=== PATIENT | female | born 1985 | race Caucasian/White ===

== ENCOUNTER → 2016-12-20 | Outpatient (CLI) | payer BC, OTHER ==
[2016-12-20 12:04] LABS: Basophils # (A) 0.1 k/uL (0-0.2); Basophils % (A) 1 %; CH 28.2; CHCM 33.1; Eosinophils # (A) 0.2 k/uL (0-0.7); Eosinophils % (A) 2 %; HCT 38.5 % (34.0-46.0); HGB 12.7 gm/dL (11.4-16.0); Luc # (Auto) 0.13; Luc % (Auto) 2; Lymphocytes # (A) 2.2 k/uL (1.0-4.8); Lymphocytes % (A) 28 %; MCH 28.2 pg (25.0-35.0); MCV 85.4 fL (80.0-100.0); Mean Platelet Volume 7.4; Monocytes # (A) 0.4 k/uL (0-1.0); Monocytes % (A) 5 %; Neutrophils % (A) 63 %; RBC 4.51 m/uL (3.80-5.40); RDW 14.1 % (11.5-15.5); WBC (Perox) 8.61
[2016-12-20 13:04] LABS: Anion Gap 13 mmol/L; Blood Urea Nitrogen 13 mg/dL (7-17); Calcium 9.4 mg/dL (8.4-10.2); Carbon Dioxide 24 mmol/L (22-30); Chloride 105 mmol/L (98-107); Glucose 94 mg/dL (74-99); Non-African American GFR(MDRD) >60 (>60 ml/min/1.73 sqM); Potassium 4.7 mmol/L (3.5-5.1); Sodium 142 mmol/L (137-145)
== END | disposition home or self-care (01) ==
LOC: LABPAT 11:15
PROVIDERS: ATTEND Obstetrics & Gynecology
DX: Z01.812 Encounter for preprocedural laboratory examination (principal)
CPT/HCPCS: 80048; 85025; 86850; 86900; 86901

== ENCOUNTER 2016-12-23 05:51 | Inpatient (IN) | payer BC, OTHER ==
[2016-12-21 11:22] VITALS: BMI 49.9
--- NOTE | 2016-12-22 19:39 | P.HPOB ---
History of Present Illness H&P Date: 12/22/16 Chief Complaint: Metromenorrhagia This is a 31-year-old female 2 para 2 who presents for total abdominal hysterectomy with bilateral salpingectomy secondary to minimal menorrhagia with irregular cycle. She has undergone an endometrial ablation that stopped her bleeding for a very short time but she continues to bleed almost daily. She has used Provera several times to stop her bleeding but would like definitive surgical treatment to control her bleeding problems. At times she bleeds through a super tampon and pad every 45 minutes. She has been bleeding for over a month now. Obstetrical history: . History of 2 deliveries. Gynecologic history: No history of sexual transmitted diseases. She has had a tubal ligation. She did have an abnormal Pap smear with atypical sinus cells of undetermined significance in 2007 and did undergo a cryo-cautery. Menses are as described above. Social history: She is . 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 Review of Systems Constitutional: Reports fatigue Genitourinary: Reports dysmenorrhea, Reports menorrhagia Menstruation: Reports menses 8 or > days, Reports period heavy Past Medical History Past Medical History: Asthma, GERD/Reflux, Hypertension, Sleep Apnea/CPAP/BIPAP Additional Past Medical History / Comment(s): hx. prolactinoma(causes production of breast milk), hx. of high BP in past, not currently taking anything, hx migraines, sleep apnea, glaucoma History of Any Multi-Drug Resistant Organisms: None Reported Past Surgical History: Appendectomy, Section, Ear Surgery, Orthopedic Surgery, Tonsillectomy, Tubal Ligation, Uterine Ablation Additional Past Surgical History / Comment(s): left wrist surgery, several facial reconstructive surg. from dog bite as child, multiple tubes in ears, laser eye surgery Past Anesthesia/Blood Transfusion Reactions: Previous Problems w/ Anesthesia, Family History of Problems w/ Anesthesia, Motion Sickness, Postoperative Nausea & Vomiting (PONV) Additional Past Anesthesia/Blood Transfusion Reaction / Comment(s): very slow to wake up from anesthesia,both parents hard to wake up Past Psychological History: Anxiety, Depression, Panic Disorder Additional Psychological History / Comment(s): panic attacks Smoking Status: Never smoker Past Alcohol Use History: Rare Past Drug Use History: None Reported - Past Family History Mother Family Medical History: Hypertension, Thyroid Disorder Medications and Allergies Home Medications Medication Instructions Recorded Confirmed Type Albuterol Sulfate [Proair Hfa] 1 - 2 puff INHALATION Q6HR PRN 04/12/16 12/21/16 History Medroxyprogesterone Acetate 10 mg PO HS 10/12/16 12/21/16 History [Provera] FLUoxetine HCL [PROzac] 40 mg PO DAILY 10/14/16 12/21/16 History Allergies Allergy/AdvReac Type Severity Reaction Status Date / Time Sulfa (Sulfonamide Allergy Anaphylaxis Verified 12/21/16 11:11 Antibiotics) amoxicillin AdvReac Rash/Hives Verified 12/21/16 11:11 clarithromycin [From Biaxin] AdvReac Rash/Hives Verified 12/21/16 11:11 cortisone AdvReac Swelling Verified 12/21/16 11:11 levofloxacin [From Levaquin] AdvReac Rash/Hives Verified 12/21/16 11:11 milk AdvReac Diarrhea Verified 12/21/16 11:11 terfenadine [From Seldane] AdvReac Diarrhea Verified 12/21/16 11:11 Exam Osteopathic Statement: *. No significant issues noted on an osteopathic structural exam other than those noted in the History and Physical/Consult. HEENT: Within normal limits Heart: Regular rate and rhythm Lungs: Clear to auscultation bilaterally Abdomen: Soft, nontender Pelvic exam: Uterus is slightly enlarged, anteverted, nontender, with no adnexal masses or tenderness palpated Extremities: Negative Homans Assessment and Plan (1) Menorrhagia with irregular cycle Status: Acute (2) Status post endometrial ablation Status: Acute Plan: Proceed with total abdominal hysterectomy with bilateral salpingectomy. I have discussed the risks, benefits, and alternative therapies for the above- mentioned procedure and for both sedation/anesthesia as well as necessary blood products administration, if indicated, as they pertain to this patient. The patient has indicated her understanding and acceptance of the risks and procedures discussed.
[~2016-12-23 05:51] MED LIST: CLINDAMYCIN 900 MG in DEXTROSE 5% IN WATER 50 ML IVPB ONE; HYDROmorphone 1 MG/ML 1 ML SYRINGE IVP PRN; LACTATED RINGERS 1,000 ML IV SCH; MIDAZOLAM 2 MG/2 ML VIAL IV PRN; ONDANSETRON 4 MG/2 ML VIAL IVP ONE; SCOPOLAMINE 1.5MG/72HR PATCH TRANSDERM ONE
[2016-12-23] MEDS ORDERED: LIDOCAINE 1% 20 ML VIAL (10MG/ML) FOR IV START INTRADERMA ONE (06:36)
[2016-12-23] MEDS ORDERED: DEXAMETHASONE SOD PHOS (MDV) 100 MG/10 ML VIAL IVP ONE (06:40)
[2016-12-23] MEDS ORDERED: LACTATED RINGERS 1,000 ML IV ONE (07:50)
--- NOTE | 2016-12-23 09:05 | P.OP ---
Date of Procedure: 12/23/16 Preoperative Diagnosis: Metromenorrhagia Postoperative Diagnosis: Same Procedure(s) Performed: Total abdominal hysterectomy with bilateral salpingectomy Anesthesia: ROSE Surgeon: Carisa Milner Mentally Retarded Teacher #1: Marivel Carballo Estimated Blood Loss (ml): 150 Pathology: other (Uterus with cervix, bilateral fallopian tubes) Condition: stable Disposition: floor Indications for Procedure: This is a 31-year-old female 2 para 2 who presents for total abdominal hysterectomy with bilateral salpingectomy secondary to minimal menorrhagia with irregular cycle. She has undergone an endometrial ablation that stopped her bleeding for a very short time but she continues to bleed almost daily. She has used Provera several times to stop her bleeding but would like definitive surgical treatment to control her bleeding problems. At times she bleeds through a super tampon and pad every 45 minutes. She has been bleeding for over a month now. Operative Findings: Uterus is small with normal contour. Left ovary did have a small simple cyst that was drained with clear straw fluid. Both tubes showed evidence of previous tubal ligation. Description of Procedure: The patient is taken to the operating room where she is placed in the dorsal supine position. She is prepped and draped in the normal sterile fashion including Puentes catheter insertion and vaginal prep. A Pfannenstiel skin incision is made through the previous laparotomy scar with a scalpel. A second knife was used to carry the incision down to the underlying layer of fascia. The fascia was nicked in the midline with a scalpel and then extended laterally bilaterally with Meléndez scissors. The superior aspect of the fascial incision was grasped with Melani clamps, elevated off the underlying rectus muscle in the midline and then cut with Meléndez scissors. The inferior aspect of the fascial incision was grasped with Melani clamps, elevated off the underlying rectus muscle in the midline and then cut with Meléndez scissors. Next the peritoneum was identified and entered sharply with Meléndez scissors. It is extended superiorly and in fairly with Metzenbaum scissors with good visualization of underlying structures. Next the Joe retractor is placed in the bladder blade was inserted. The bowels were packed with a 3 yard laparotomy sponge. Next the uterus is brought up incision and the corneal regions are grasped with Mildred clamps on both sides. Next the fallopian tube on the left side is brought up to the incision and the mesosalpinx is clamped with a Vianey clamp. This is cut with Meléndez scissors and then sutured with 0 Vicryl suture in Vianey transfixion stitch. The remaining mesosalpinx is also clamped with a Vianey clamp, cut with Meléndez scissors, and sutured with 0 Vicryl suture in Vianey transfixion stitches. Next the uterine ovarian ligament is clamped with a Vianey clamp, cut with Meléndez scissors, and then sutured with 0 Vicryl suture in Vianey transfixion stitch. The same procedure is carried out on the right side. The uterine arteries are then clamped with Vianey clamp on either side. The vesicouterine peritoneum was sharply dissected away from the bladder with Metzenbaum scissors and pushed inferiorly. The bladder was noted be fairly adherent to the uterus. The uterine arteries are then cut with Meléndez scissors, and sutured with 0 Vicryl suture in Vianey transfixion stitches. Next the cardinal ligaments were clamped on either side with Vianey clamp, cut with Meléndez scissors, and sutured with 0 Vicryl suture in Vianey transfixion stitches. The uterosacral ligaments are clamped on either side with Vianey clamps, cut with Meléndez scissors, and sutured with 0 Vicryl suture in Vianey transfixion stitches on either side. The edges of the vaginal cuff were clamped on either side with a Vianey clamp, cut with Meléndez scissors, and sutured with 0 Vicryl suture in Vianey transfixion stitches and held on either side. The vaginal mucosa was then cut just below the level of the cervix and the specimen is removed from the field. The edges of the vaginal cuff were held with Melani clamps. Next the previously held corners of each side of the vaginal cuff were then whipstitched along the connective tissue on either side and brought through the corner of the cuff and tied. Next the vaginal cuff was sutured with 0 Vicryl suture in a running locked fashion. Hemostasis was noted. Copious irrigation is carried out with warm saline. Excellent hemostasis is noted. All sponges are removed from the abdomen. There is a omental adhesion noted at the superior aspect of the fascial incision. The peritoneum is then closed with 0 Vicryl suture in a running fashion. The muscle was then reapproximated with 0 Vicryl suture in interrupted fashion. The fascia layer is then closed with 0 PDS suture in a running fashion with the knots buried on either side and in the midline. Next the subcutaneous tissues closed with 2-0 Vicryl suture in a running fashion. The skin is closed with herman. All sponge and needle counts are correct and the patient is taken to recovery room in stable condition.
[2016-12-23] MEDS ORDERED: diphenhydrAMINE 50 MG/ML 1 ML VIAL IVP PRN (10:20)
[2016-12-23] MEDS ORDERED: ONDANSETRON 4 MG/2 ML VIAL IVP PRN (10:20)
[2016-12-23] MEDS ORDERED: SIMETHICONE 80 MG CHEWABLE PO PRN (10:20)
[2016-12-23] MEDS ORDERED: METOCLOPRAMIDE 5 MG/ML 2 ML VIAL IVP PRN (10:20)
[2016-12-23] MEDS ORDERED: ZOLPIDEM 5 MG TAB PO PRN (10:20)
[2016-12-23] MEDS ORDERED: NALOXONE 0.4 MG/ML 1 ML VIAL IV PRN (10:20)
[2016-12-23] MEDS ORDERED: ALBUTEROL NEBULIZED 2.5 MG/3 ML INHALATION PRN (10:20)
[2016-12-23] MEDS: HYDROmorphone PCA 5 MG/25 ML SYRINGE IV PRN ×3 (11:10→22:31)
[2016-12-23] MEDS: LACTATED RINGERS 1,000 ML IV SCH ×2 (11:59→21:07)
[2016-12-23 12:11] LABS: Amorphous Sediment,Urine Moderate /hpf; Appearance,Urine Turbid (Clear); Bacteria,Urine Rare /hpf; Bilirubin,Urine Negative (Negative); Glucose,Urine (UA) Trace (Negative); Ketones,Urine Negative (Negative); Leukocyte Esterase,Urine Negative (Negative); Mucus,Urine Many /hpf; Nitrite,Urine Negative (Negative); PH, Urine 5.5 (5.0-8.0); Particle Count 55975; Protein,Urine 1+ (Negative); RBC,Urine 47 /hpf (0-5); Specific Gravity,Urine 1.024 (1.001-1.035); Squamous Epithelial Cell,Urine 2 /hpf (0-4); UA Billing (MACRO vs. MICRO) MICRO; Urobilinogen,Urine <2.0 mg/dL (<2.0); WBC,Urine 1 /hpf (0-5)
[2016-12-23] MEDS: KETOROLAC 30 MG/ML 1 ML VIAL IVP PRN ×2 (14:25→21:09)
[2016-12-23] MEDS: SENNOSIDES-DOCUSATE SODIUM 1 EACH TAB PO SCH (21:08)
[2016-12-24] MEDS: LACTATED RINGERS 1,000 ML IV SCH (04:49)
[2016-12-24] MEDS: HYDROmorphone PCA 5 MG/25 ML SYRINGE IV PRN (07:16)
[2016-12-24 07:24] LABS: Basophils % (A) 0 %; CH 27.9; CHCM 32.4; Eosinophils % (A) 0 %; HCT 32.3 % (34.0-46.0); HDW 2.82; HGB 10.5 gm/dL (11.4-16.0); Luc # (Auto) 0.24; Luc % (Auto) 2; Lymphocytes # (A) 2.7 k/uL (1.0-4.8); Lymphocytes % (A) 27 %; MCHC 32.4 g/dL (31.0-37.0); MCV 86.5 fL (80.0-100.0); Mean Platelet Volume 6.9; Monocytes # (A) 0.6 k/uL (0-1.0); Monocytes % (A) 6 %; Neutrophils # (A) 6.3 k/uL (1.3-7.7); Neutrophils % (A) 64 %; RBC 3.74 m/uL (3.80-5.40); RDW 14.3 % (11.5-15.5); WBC 9.8 k/uL (3.8-10.6); WBC (Perox) 10.32
[2016-12-24] MEDS: SENNOSIDES-DOCUSATE SODIUM 1 EACH TAB PO SCH ×3 (08:05→20:46)
[2016-12-24] MEDS: FLUoxetine HCL 20 MG CAP PO SCH (08:07)
[2016-12-24] MEDS: KETOROLAC 30 MG/ML 1 ML VIAL IVP PRN (08:07)
[2016-12-24] MEDS ORDERED: ACETAMINOPHEN TAB 325 MG TAB PO PRN (09:13)
--- NOTE | 2016-12-24 10:03 | P.PN ---
Subjective Principal diagnosis: Status post JANKI with bilateral salpingectomy postoperative day #1 Patient has been ambulating. She has passing flatus and some loose stools. She has been urinating without difficulty. She is still having some pain with the INJECTION MOLDING TECHNICIAN pump. She did have some nausea and vomiting last night but it has improved this morning. She is tolerating liquids at this time. Objective - Vital Signs Vital signs: Vital Signs Temp 98.4 F 12/24/16 07:00 Pulse 93 12/24/16 07:00 Resp 18 12/24/16 07:00 BP 125/61 12/24/16 07:00 Pulse Ox 95 12/24/16 09:23 Intake & Output 12/23/16 12/24/16 12/24/16 18:59 06:59 18:59 Intake Total 1306 400 Output Total 540 250 Balance 766 -250 400 Weight 127.913 kg Intake: IV 1006 Oral 300 400 Output: Urine 390 250 Uretheral (Puentes) 100 Estimated Blood Loss 150 Other: Voiding Method Toilet # Voids 1 1 # Bowel Movements 1 - Constitutional General appearance: Present: no acute distress - Gastrointestinal Gastrointestinal Comment(s): Incision is clean dry and intact with herman in place. General gastrointestinal: Present: normal bowel sounds, soft, tenderness (Mild) - Labs CBC & Chem 7: 12/24/16 06:50 12/20/16 11:20 Labs: Abnormal Lab Results - Last 24 Hours (Table) 12/23/16 12/24/16 Range/Units 11:35 06:50 RBC 3.74 L (3.80-5.40) m/uL Hgb 10.5 L (11.4-16.0) gm/dL Hct 32.3 L (34.0-46.0) % Urine Appearance Turbid H (Clear) Urine Protein 1+ H (Negative) Urine Glucose (UA) Trace H (Negative) Urine Blood Moderate H (Negative) Urine RBC 47 H (0-5) /hpf Amorphous Sediment Moderate H (None) /hpf Urine Bacteria Rare H (None) /hpf Urine Mucus Many H (None) /hpf Microbiology - Last 24 Hours (Table) 12/23/16 11:35 Urine Culture - Preliminary Urine,Catheterized Assessment and Plan (1) Menorrhagia with irregular cycle Status: Acute (2) Status post endometrial ablation Status: Acute Plan: Impression is status post JANKI with bilateral salpingectomy postoperative day # 1. Plan is to switch to oral pain medications today. We'll advance diet as tolerated. Encouraged ambulation. If she is doing well with pain tomorrow and she is tolerating her diet okay, she may be old to go home tomorrow. She will see me in the office in approximately 1 week for a postoperative check and herman will be removed prior to discharge. She will be seen by Dr. Parada on 12/25/2016.
[2016-12-24] MEDS: Acetaminophen-Codeine 300-30mg TAB PO PRN ×3 (12:51→19:55)
[2016-12-24] MEDS: IBUPROFEN 600 MG TAB PO PRN (15:35)
[2016-12-25] MEDS: IBUPROFEN 600 MG TAB PO PRN ×2 (01:11→08:41)
[2016-12-25 01:15] VITALS: RESP 18
[2016-12-25] MEDS: Acetaminophen-Codeine 300-30mg TAB PO PRN ×2 (04:06→11:13)
[2016-12-25] MEDS: LACTATED RINGERS 1,000 ML IV SCH ×2 (07:17→07:18)
[2016-12-25] MEDS: SENNOSIDES-DOCUSATE SODIUM 1 EACH TAB PO SCH (08:42)
[2016-12-25] MEDS: FLUoxetine HCL 20 MG CAP PO SCH (08:42)
[2016-12-25 10:07] VITALS: BP 127/76; PULSE 91; TEMP 97.2
--- NOTE | 2016-12-25 11:36 | P.DS ---
Providers Date of admission: 12/23/16 05:51 Expected date of discharge: 12/25/16 Attending physician: Carisa Milner Primary care physician: [facility] Course: Priscilla is seen and evaluated postop day 2. She is able to ambulate, void and she is tolerating her diet. She voices no complaints. She is requesting discharge home. Her vital signs are stable and she is afebrile. Her heart is regular her lungs are clear her abdomen is soft. Positive bowel sounds are noted. Her incision is clean dry and intact but based on reviewing the incision did not feel herman should be removed at this time. She'll follow up in the office in 1-2 days for staple removal and reevaluation. All the questions are answered for her prior to discharge and she is again stable for discharge at this time. Patient Condition at Discharge: Good Plan - Discharge Summary New Discharge Prescriptions: Acetaminophen-Codeine 300-30mg [Tylenol w/codeine #3] 1 each PO Q4HR PRN #30 tab PRN Reason: Moderate Pain Ibuprofen [Motrin] 600 mg PO Q6HR PRN #60 tab PRN Reason: Pain Discharge Medication List Albuterol Sulfate [Proair Hfa] 1 - 2 puff INHALATION RT-Q6H PRN 04/12/16 [ History] FLUoxetine HCL [PROzac] 40 mg PO DAILY 10/14/16 [History] Acetaminophen-Codeine 300-30mg [Tylenol #3] 1 tab PO Q4H PRN 12/23/16 [History] Acetaminophen-Codeine 300-30mg [Tylenol w/codeine #3] 1 each PO Q4HR PRN #30 tab 12/24/16 [Rx] Ibuprofen [Motrin] 600 mg PO Q6HR PRN #60 tab 12/24/16 [Rx] Follow up Appointment(s)/Referral(s): Carisa Milner DO [Doctor of Osteopathic Medicine] - 12/26/16 (for staple removal ) Patient Instructions/Handouts: *Surgery [facility] - Scopalamine Patch Instructions Activity/Diet/Wound Care/Special Instructions: No heavy lifting (about a milk jug). May shower, but no tub baths. No driving until off narcotic pain medication. No intercourse. (nothing vaginally) Diet as tolerated. Drink fluids. Call office with any fever, chills, increased pain not covered by pain meds, redness or discolored drainage from incision. heavy vaginal bleeding or any concerns. continue to use your incentive spirometery at home for the next couple of days. Return to office tomorrow for staple removal with Dr Milner. Last received Motrin 600mg at 0840 Last received 2 Tylenol #3 at 1115 Discharge Disposition: HOME SELF-CARE
== END 2016-12-25 11:55 | disposition home or self-care (01) | DRG 743 ==
LOC: 2ORWHC 05:51 → 6PED 09:13
PROVIDERS: ADMIT Obstetrics & Gynecology; ATTEND Obstetrics & Gynecology
PROC: 0UT90ZZ Resection of Uterus, Open Approach (ICD-10-PCS; 2016-12-23)
PROC: 0UTC0ZZ Resection of Cervix, Open Approach (ICD-10-PCS; 2016-12-23)
PROC: 0UT70ZZ Resection of Bilateral Fallopian Tubes, Open Approach (ICD-10-PCS; principal; 2016-12-23 07:30)
DX: N92.1 Excessive and frequent menstruation with irregular cycle (principal); I10 Essential (primary) hypertension; G47.30 Sleep apnea, unspecified; J45.909 Unspecified asthma, uncomplicated; N83.292 Other ovarian cyst, left side; Z98.51 Tubal ligation status; K21.9 Gastro-esophageal reflux disease without esophagitis; F32.9 Major depressive disorder, single episode, unspecified; F41.0 Panic disorder [episodic paroxysmal anxiety]; Z79.899 Other long term (current) drug therapy
CPT/HCPCS: 80048; 81001; 81025; 85025; 86850; 86900; 86901; 87086; 88307; 94760

== ENCOUNTER → 2017-06-02 | Outpatient (CLI) | payer BC, OTHER ==
[2017-06-02 11:28] LABS: ALT 29 U/L (9-52); AST 15 U/L (14-36); Alkaline Phosphatase 81 U/L (38-126); Anion Gap 11 mmol/L; Blood Urea Nitrogen 12 mg/dL (7-17); Calcium 9.3 mg/dL (8.4-10.2); Carbon Dioxide 25 mmol/L (22-30); Chloride 106 mmol/L (98-107); Cholesterol 169 mg/dL (<200); Glucose 97 mg/dL (74-99); HDL Cholesterol 39 mg/dL (40-60); Non-African American GFR(MDRD) >60 (>60 ml/min/1.73 sqM); Potassium 4.7 mmol/L (3.5-5.1); Sodium 142 mmol/L (137-145); Total Bilirubin 0.5 mg/dL (0.2-1.3); Total Protein 7.1 g/dL (6.3-8.2); Triglycerides 131 mg/dL (<150)
[2017-06-02 12:04] LABS: CH 28.1; CHCM 33.5; HCT 38.1 % (34.0-46.0); HDW 2.77; HGB 12.9 gm/dL (11.4-16.0); MCH 28.5 pg (25.0-35.0); MCHC 33.8 g/dL (31.0-37.0); MCV 84.3 fL (80.0-100.0); Mean Platelet Volume 6.9; RBC 4.52 m/uL (3.80-5.40); RDW 14.1 % (11.5-15.5); WBC 7.6 k/uL (3.8-10.6)
== END | disposition home or self-care (01) ==
LOC: LABWHC1 10:31
PROVIDERS: ATTEND Internal Medicine
DX: J45.909 Unspecified asthma, uncomplicated (principal); E78.5 Hyperlipidemia, unspecified
CPT/HCPCS: 36415; 80053; 80061; 84443; 85027

== ENCOUNTER 2018-05-02 07:48 | Inpatient (IN) | payer BC, MEDICAID ==
--- NOTE | 2018-05-02 08:44 | ED ---
Psych HPI - General Chief Complaint: Psychiatric Symptoms Stated Complaint: Depression Time Seen by Provider: 05/02/18 08:34 Source: patient, RN notes reviewed, old records reviewed Mode of arrival: ambulatory - History of Present Illness Initial Comments: This Patient is a 32-year-old female chief complaint of depression. Patient reports that she has a 2 and a 4-year-old daughter. She states that someone and she wishes she just would not wake up. She denies any active suicidal plan. Patient reports that she has been dealing with depression for quite some time it seems like over the past 2 weeks she feels an emptiness. She reports that she's had a poor sleeping habits and poor diet. Patient states she is not seen a counselor or toxic by any of these feelings recently. Patient is here with her .Patient denies any recent fever, chills, shortness of breath, chest pain, back pain, abdominal pain, nausea vomiting, numbness or tingling, dysuria or hematuria, constipation or diarrhea, headaches or visual changes, or any other current symptoms - Related Data Home Medications Medication Instructions Recorded Confirmed Albuterol Sulfate [Proair Hfa] 1 - 2 puff INHALATION RT-Q6H PRN 04/12/16 FLUoxetine HCL [PROzac] 40 mg PO DAILY 10/14/16 05/02/18 Ibuprofen [Motrin Ib] 400 mg PO Q6H PRN 05/02/18 05/02/18 Allergies Allergy/AdvReac Type Severity Reaction Status Date / Time Sulfa (Sulfonamide Allergy Anaphylaxis Verified 05/02/18 08:16 Antibiotics) amoxicillin AdvReac Rash/Hives Verified 05/02/18 08:16 clarithromycin [From Biaxin] AdvReac Rash/Hives Verified 05/02/18 08:16 cortisone AdvReac Swelling Verified 05/02/18 08:16 levofloxacin [From Levaquin] AdvReac Rash/Hives Verified 05/02/18 08:16 milk AdvReac Diarrhea Verified 05/02/18 08:16 terfenadine [From Seldane] AdvReac Diarrhea Verified 05/02/18 08:16 Review of Systems ROS Statement: Those systems with pertinent positive or pertinent negative responses have been documented in the HPI. ROS Other: All systems not noted in ROS Statement are negative. Past Medical History Past Medical History: Asthma, GERD/Reflux, Hypertension, Sleep Apnea/CPAP/BIPAP Additional Past Medical History / Comment(s): hx. prolactinoma(causes production of breast milk), hx. of high BP in past, not currently taking anything, hx migraines, sleep apnea, glaucoma History of Any Multi-Drug Resistant Organisms: None Reported Past Surgical History: Appendectomy, Section, Ear Surgery, Hysterectomy , Orthopedic Surgery, Tonsillectomy, Tubal Ligation, Uterine Ablation Additional Past Surgical History / Comment(s): left wrist surgery, several facial reconstructive surg. from dog bite as child, multiple tubes in ears, laser eye surgery. [facility] 12/23/2016 Past Anesthesia/Blood Transfusion Reactions: Previous Problems w/ Anesthesia, Family History of Problems w/ Anesthesia, Motion Sickness, Postoperative Nausea & Vomiting (PONV) Additional Past Anesthesia/Blood Transfusion Reaction / Comment(s): very slow to wake up from anesthesia,both parents hard to wake up Past Psychological History: Anxiety, Depression, Panic Disorder Smoking Status: Never smoker Past Alcohol Use History: Rare Past Drug Use History: None Reported - Past Family History Mother Family Medical History: Hypertension, Thyroid Disorder Father Family Medical History: Hypertension General Exam - General Exam Comments Initial Comments: This is a 32-year-old female. Limitations: no limitations General appearance: alert, in no apparent distress Head exam: Present: atraumatic, normocephalic, normal inspection Eye exam: Present: normal appearance, PERRL, EOMI. Absent: scleral icterus, conjunctival injection, periorbital swelling ENT exam: Present: normal exam, mucous membranes moist Neck exam: Present: normal inspection. Absent: tenderness, meningismus, lymphadenopathy Respiratory exam: Present: normal lung sounds bilaterally. Absent: respiratory distress, wheezes, rales, rhonchi, stridor Cardiovascular Exam: Present: regular rate, normal rhythm, normal heart sounds. Absent: systolic murmur, diastolic murmur, rubs, gallop, clicks GI/Abdominal exam: Present: soft, normal bowel sounds. Absent: distended, tenderness, guarding, rebound, rigid Extremities exam: Present: normal inspection, full ROM, normal capillary refill. Absent: tenderness, pedal edema, joint swelling, calf tenderness Back exam: Present: normal inspection Neurological exam: Present: alert, oriented X3, CN II-XII intact Psychiatric exam: Present: depressed. Absent: normal affect, normal mood ( Patient reports that she is very depressed. She states she wished she would not wake up. However she denies any active suicidal plan.) Course Vital Signs 05/02/18 08:04 Temperature 98.9 F Pulse Rate 108 H Respiratory 18 Rate Blood Pressure 141/87 O2 Sat by Pulse 99 Oximetry Medical Decision Making - Medical Decision Making Patient is a 5-year-old female suffering from depression. Patient will be admitted at this time for inpatient psychiatric treatment. Patient agrees to sign an on her own well. - Lab Data Lab Results 05/02/18 Range/Units 08:50 Urine Opiates Screen Not Detected (NotDetected) Ur Oxycodone Screen Not Detected (NotDetected) Urine Methadone Screen Not Detected (NotDetected) Ur Propoxyphene Screen Not Detected (NotDetected) Ur Barbiturates Screen Not Detected (NotDetected) U Tricyclic Antidepress Not Detected (NotDetected) Ur Phencyclidine Scrn Not Detected (NotDetected) Ur Amphetamines Screen Not Detected (NotDetected) U Methamphetamines Scrn Not Detected (NotDetected) U Benzodiazepines Scrn Not Detected (NotDetected) Urine Cocaine Screen Not Detected (NotDetected) U Marijuana (THC) Screen Not Detected (NotDetected) Disposition Clinical Impression: Depression Disposition: TRANSFER TO PSYCH HOSP/UNIT Condition: Stable Is patient prescribed a controlled substance at d/c from ED?: No When asked, does pt state using other controlled substances?: No If prescribed controlled substance>3 days was MAPS reviewed?: No If opioid is for acute pain is fill amount 7 days or less?: No If Rx opioid, was Start Talking consent form obtained?: No Referrals: Black Mcconnell MD [Primary Care Provider] - 1-2 days Time of Disposition: 10:51
[2018-05-02 09:39] LABS: Amphetamine Screen,Urine Not Detected (NotDetected); Barbiturate Screen,Urine Not Detected (NotDetected); Benzodiazepines Screen,Urine Not Detected (NotDetected); Cocaine Screen,Urine Not Detected (NotDetected); Methadone Screen, Urine Not Detected (NotDetected); Opiate Screen,Urine Not Detected (NotDetected); Oxycodone Screen, Urine Not Detected (NotDetected); Phencyclidine Screen,Urine Not Detected (NotDetected); Tricyclic Antidepressant,Urine Not Detected (NotDetected); Urn Cannabinoid Scrn Not Detected (NotDetected)
[2018-05-02] MEDS ORDERED: MAGNESIUM HYDROXIDE 2,400 MG/10 ML CUP PO PRN (14:27)
[2018-05-02] MEDS ORDERED: MAG HYDROX/AL HYDROX/SIMETH 30 ML CUP PO PRN (14:27)
[2018-05-02] MEDS ORDERED: ACETAMINOPHEN TAB 325 MG TAB PO PRN (14:27)
[2018-05-02] MEDS ORDERED: ALBUTEROL INHALER 60 PUFF/8 GM INHALER INHALATION PRN (14:29)
[2018-05-02 14:52] VITALS: BMI 42.3
[2018-05-02] MEDS: IBUPROFEN 400 MG TAB PO PRN (15:15)
--- NOTE | 2018-05-02 15:37 | P.HP ---
Psychiatric H&P - . H&P Date: 05/02/18 History & Physical: Allergies Allergy/AdvReac Type Severity Reaction Status Date / Time Sulfa (Sulfonamide Allergy Anaphylaxis Verified 05/02/18 08:16 Antibiotics) amoxicillin AdvReac Rash/Hives Verified 05/02/18 08:16 clarithromycin [From Biaxin] AdvReac Rash/Hives Verified 05/02/18 08:16 cortisone AdvReac Swelling Verified 05/02/18 08:16 levofloxacin [From Levaquin] AdvReac Rash/Hives Verified 05/02/18 08:16 terfenadine [From Seldane] AdvReac Diarrhea Verified 05/02/18 08:16 Vital Signs Temp 99.4 F 05/02/18 14:33 Pulse 79 05/02/18 14:33 Resp 18 05/02/18 14:33 BP 139/79 05/02/18 14:33 Pulse Ox 99 05/02/18 08:04 Intake & Output 05/01/18 05/02/18 05/02/18 18:59 06:59 18:59 Weight 108.522 kg Laboratory Last Values Urine Opiates Screen Not Detected (NotDetected) 05/02/18 08:50 Ur Oxycodone Screen Not Detected (NotDetected) 05/02/18 08:50 Urine Methadone Screen Not Detected (NotDetected) 05/02/18 08:50 Ur Propoxyphene Screen Not Detected (NotDetected) 05/02/18 08:50 Ur Barbiturates Screen Not Detected (NotDetected) 05/02/18 08:50 U Tricyclic Antidepress Not Detected (NotDetected) 05/02/18 08:50 Ur Phencyclidine Scrn Not Detected (NotDetected) 05/02/18 08:50 Ur Amphetamines Screen Not Detected (NotDetected) 05/02/18 08:50 U Methamphetamines Scrn Not Detected (NotDetected) 05/02/18 08:50 U Benzodiazepines Scrn Not Detected (NotDetected) 05/02/18 08:50 Urine Cocaine Screen Not Detected (NotDetected) 05/02/18 08:50 U Marijuana (THC) Screen Not Detected (NotDetected) 05/02/18 08:50 05/02/18 15:21 Identification: Priscilla ramirez is a 40 years old white female living in [facility]. She was admitted to [facility] on 2017 on a voluntary basis since she complained of depression and mood changes which has been quite disturbing to her. History of present illness: Patient reported that she has been having depression for the last 5-6 years before she became first time. She said it stays worse for up to 2 weeks. During these periods she cannot shake it off, gets tearful, wants to sleep that she cannot sleep, isolates herself, does not want to be bothered and feels she is dependent. There appears when she feels happy and hyper lasting up to 2 days. However she is able to sleep well during these times, does not go on buying sprees, does not get sexually overactive and delusional has difficulty in focusing. She denies delusional thinking, hallucinations etc. She denies any self abusive behavior. But she has 8 tattoos 3 piercings on each ear lobes, 1 on left pinna and 1 Nose piercing. Previous psychiatric history/drug and alcohol abuse: She was never in a psychiatric hospital. She sees her family doctor who had prescribed her Prozac 40 mg a day. She does well on this for a while but then she gets suicidal thoughts which makes her stopped taking Prozac. Apparently her family doctor did not want to send her for counseling or to refer her to a psychiatrist. Patient denies abusing drugs and alcohol. Her drug screening is negative. Previous medical history: She is ALLERGIC to sulfa amoxicillin, clarithromycin, cortisone, Levaquin and Seldane. She has 2 children and had no . She had hysterectomy in December 2016 for heavy bleeding. She also had surgery to repair the fracture of left forearm and apparently she has plates and screws put in there, had appendectomy, tonsillectomy and tubes were put in in her ears at the age of 15. 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 She was on Ritalin and Concerta for up to 2 years between elementary and middle school. Apparently she was diagnosed with ADHD or ADD but the teachers felt she was a zombie when she was on Concerta and so it was stopped without any problem. She did not have any issues with learning or discipline. She was in drama and not in any other extracurricular activities. She was outgoing but she was not popular. She had good friends. She was raised well by her mother and stepfather. Her parents were before she was born. She was not abused. She was not in the service. She is [employer]. She does not go to [employer]. She is heterosexual. She lives with her and 2 children. 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 She has [facility] health insurance and Medicaid. She denies any pending legal issues. Family history: Her grandfather of esophageal cancer. Her grandmother of breast cancer. Her maternal aunt killed herself within 2 weeks of her being killed. Mental status examination: This is an obese ambulatory white female with good hygiene. She has multiple tattoos and piercings. She does not show any psychomotor agitation or retardation. Her speech is spontaneous relevant and goal-directed. Her mood is cheerful and affect is labile. She gets tearful quite easily and also is able to laugh easily as well. She denies suicide and homicide thoughts. She also denies hallucinations and delusional thinking. She is well oriented. She is able to recall 2 out of 3 items after 5 minutes. She is able to name the last 4 presidents correctly. She is able to spell house both forwards and backwards correctly. She is able to say 8+7 is 15 and 8 7 is 56 without much difficulty. Her insight is fair and judgment also seems to be adequate. Diagnostic impression: Rule out unspecified bipolar and related disorder F 31.9. Rule out borderline personality disorder F 60.3. ALLERGY to sulfa, amoxicillin, clarithromycin, cortisone, Levaquin and Seldane. Obesity. Treatment plan: Patient will have physical examination and psychosocial evaluation. She will receive milieu therapy group therapy individual therapy occupational therapy recreational therapy and medication education. Her condition was discussed with her along with proposed treatment. She agreed to try Seroquel 50 mg at bedtime for mood stabilization. Discharge with outpatient follow-up. Treatment goals: Her mood will be stable. She will learn better coping skills. Estimated length of stay: 2-4 days.
[2018-05-02] MEDS: QUEtiapine 50 MG TAB PO SCH (20:11)
[2018-05-03 06:56] VITALS: RESP 16
--- NOTE | 2018-05-03 08:40 | P.PN ---
Progress Note - Text Progress Note Date: 05/03/18 Patient was seen for a follow-up examination. She does not have any complaint today. She was visited by her and mother yesterday and she talk to her children this morning. She took her Seroquel 50 mg at bedtime last night and slept very soundly. She denies any other side effects. She is getting ready for her shower. This is an obese ambulatory white female with good hygiene. She is polite and cooperative. She does not show any psychomotor agitation or retardation. Her speech is spontaneous relevant and goal-directed. Her mood is cheerful and affect is appropriate. She did not become tearful today. She continues to deny suicide, homicide thoughts hallucinations and delusional thinking. She is well oriented with good memory concentration general knowledge etc. Plan: Continue Seroquel 50 mg at bedtime, groups and other therapies.
[2018-05-03 09:25] LABS: Basophils % (A) 0 %; Eosinophils # (A) 0.1 k/uL (0-0.7); Eosinophils % (A) 1 %; HCT 40.3 % (34.0-46.0); HGB 13.6 gm/dL (11.4-16.0); Lymphocytes # (A) 2.5 k/uL (1.0-4.8); Lymphocytes % (A) 34 %; MCH 28.8 pg (25.0-35.0); MCHC 33.7 g/dL (31.0-37.0); MCV 85.7 fL (80.0-100.0); Mean Platelet Volume 6.8; Monocytes # (A) 0.4 k/uL (0-1.0); Monocytes % (A) 5 %; Neutrophils # (A) 4.2 k/uL (1.3-7.7); Neutrophils % (A) 58 %; Platelet Count 301 k/uL (150-450); RBC 4.71 m/uL (3.80-5.40); RDW 13.8 % (11.5-15.5); WBC 7.3 k/uL (3.8-10.6)
[2018-05-03 09:52] LABS: ALT 27 U/L (9-52); AST 14 U/L (14-36); Albumin 4.8 g/dL (3.5-5.0); Alkaline Phosphatase 65 U/L (38-126); Anion Gap 14 mmol/L; Blood Urea Nitrogen 12 mg/dL (7-17); Calcium 9.7 mg/dL (8.4-10.2); Carbon Dioxide 26 mmol/L (22-30); Chloride 104 mmol/L (98-107); Glucose 102 mg/dL (74-99); Potassium 4.6 mmol/L (3.5-5.1); Sodium 144 mmol/L (137-145); Total Bilirubin 0.8 mg/dL (0.2-1.3); Total Protein 7.4 g/dL (6.3-8.2)
--- NOTE | 2018-05-03 10:28 | P.CONS ---
History of Present Illness - Reason for Consult Consult date: 05/03/18 Medical management Requesting physician: Wen Brown - Chief Complaint Depression - History of Present Illness This is a 32-year-old female in known history of anxiety, depression, panic disorder, asthma, GERD, hypertension, migraines and prolactoma. Patient presented to the emergency room with her with complaints of depression. She has suffered for with depression for multiple years. She has been on Prozac. Patient reports that the Prozac is not working. She's had poor appetite. Also is not sleeping well. This is patient's first psychiatric admission. We have been consulted for medical management. Patient denies any chest pain or shortness of breath. Denies any nausea or vomiting. Denies any bowel movement changes urinary symptoms. Denies any fever chills or sweats. Drug screen is negative. Patient was placed on Seroquel 50 mg at bedtime by psychiatry. Patient reports that she was actually able to sleep through the night. Patient reports no thoughts of wanting to hurt herself or anyone knows. She does report she did not wake up from her sleep she would be okay with. Review of Systems Please refer to HPI otherwise unremarkable Past Medical History Past Medical History: Asthma, GERD/Reflux Additional Past Medical History / Comment(s): hx. prolactinoma(causes production of breast milk), hx. of high BP in past, not currently taking anything, hx migraines, sleep apnea, glaucoma History of Any Multi-Drug Resistant Organisms: None Reported Past Surgical History: Appendectomy, Section, Ear Surgery, Hysterectomy , Orthopedic Surgery, Tonsillectomy, Tubal Ligation, Uterine Ablation Additional Past Surgical History / Comment(s): left wrist surgery, several facial reconstructive surg. from dog bite as child, multiple tubes in ears, laser eye surgery. [facility] 12/23/2016 Past Anesthesia/Blood Transfusion Reactions: Previous Problems w/ Anesthesia, Family History of Problems w/ Anesthesia, Motion Sickness, Postoperative Nausea & Vomiting (PONV) Additional Past Anesthesia/Blood Transfusion Reaction / Comm: very slow to wake up from anesthesia,both parents hard to wake up Past Psychological History: Anxiety, Depression, Panic Disorder Additional Psychological History / Comment(s): panic attacks Smoking Status: Never smoker Past Alcohol Use History: Rare Past Drug Use History: None Reported - Past Family History Mother Family Medical History: AFIB, Diabetes Mellitus, Hypertension, Liver Disease, Thyroid Disorder Father Family Medical History: Diabetes Mellitus, Hypertension, Myocardial Infarction ( [place]), Thyroid Disorder Medications and Allergies Home Medications Medication Instructions Recorded Confirmed Type Albuterol Sulfate [Proair Hfa] 1 - 2 puff INHALATION RT-Q6H PRN 04/12/16 History FLUoxetine HCL [PROzac] 40 mg PO DAILY 10/14/16 05/02/18 History Ibuprofen [Motrin Ib] 400 mg PO Q6H PRN 05/02/18 05/02/18 History Allergies Allergy/AdvReac Type Severity Reaction Status Date / Time Sulfa (Sulfonamide Allergy Anaphylaxis Verified 05/02/18 08:16 Antibiotics) amoxicillin AdvReac Rash/Hives Verified 05/02/18 08:16 clarithromycin [From Biaxin] AdvReac Rash/Hives Verified 05/02/18 08:16 cortisone AdvReac Swelling Verified 05/02/18 08:16 levofloxacin [From Levaquin] AdvReac Rash/Hives Verified 05/02/18 08:16 terfenadine [From Seldane] AdvReac Diarrhea Verified 05/02/18 08:16 Physical Exam Vitals: Vital Signs Temp Pulse Resp BP 05/03/18 06:30 98.1 F 81 16 132/87 05/02/18 14:33 99.4 F 79 18 139/79 Head normocephalic Neck supple Lungs clear to auscultation bilaterally no wheezing or crackles Heart regular rate and rhythm S1-S2, no rub or gallop Abdomen is soft nontender nondistended positive bowel sounds no hepatosplenomegaly Extremities no edema Neuro alert and orientated to 3 Results CBC & Chem 7: 05/03/18 09:07 Assessment and Plan Assessment: 1. Severe depression: Patient is been admitted to the psychiatric unit. Concerns about possible bipolar. Patient was placed on careful and she was able to sleep through the night. Awaiting laboratory results which include thyroid level, CBC and CMP 2. History of anxiety and depression 3. History of mild intermittent asthma. Stable continue his inhaler as needed 4. History of migraines Thank you for this consultation. We'll follow up on blood work. Will follow along as needed Time with Patient: Greater than 30 (Greater than 60% of the total time spent in counseling and coordination of care.I performed an examination of the patient and discussed their management with the physician Plumber Maintenance. I have reviewed the Physician Plumber Maintenance's notes and agree with the documented findings and plan of care)
[2018-05-03 19:43] LABS: Appearance,Urine Cloudy (Clear); Bacteria,Urine Occasional /hpf; Bilirubin,Urine Negative (Negative); Blood,Urine Negative (Negative); Color,Urine Yellow; Glucose,Urine (UA) Negative (Negative); Ketones,Urine Negative (Negative); Leukocyte Esterase,Urine Negative (Negative); Mucus,Urine Moderate /hpf; Nitrite,Urine Negative (Negative); Protein,Urine Trace (Negative); RBC,Urine 3 /hpf (0-5); Specific Gravity,Urine 1.023 (1.001-1.035); Squamous Epithelial Cell,Urine 9 /hpf (0-4); WBC,Urine 1 /hpf (0-5)
[2018-05-03] MEDS: QUEtiapine 50 MG TAB PO SCH (21:03)
[2018-05-03] MEDS: IBUPROFEN 400 MG TAB PO PRN (21:36)
[2018-05-04 07:00] VITALS: BP 112/67; PULSE 64; TEMP 97.9
--- NOTE | 2018-05-04 09:44 | P.DS ---
Providers Date of admission: 05/02/18 13:32 Expected date of discharge: 05/04/18 Attending physician: Wen Brown Consults: 05/02/18 14:27 Consult Physician Routine Consulting Provider: Black Mcconnell Consult Reason/Comments: history and physical Do you want consulting provider notified?: Yes Primary care physician: Black Enedina [facility] Course: Patient had her psychiatric evaluation, physical examination and psychosocial evaluation. After psychiatric evaluation it was agreed to start her on Seroquel 50 mg at bedtime for more stabilization. She took this medication without any adverse effects. She has been able to sleep well at night, her mood has been stable and continues to deny suicide thoughts. She also agreed to continue with outpatient treatment by a psychiatrist and therapist. In view of all these it was agreed to discharge her. Condition on discharge: This is an obese ambulatory white female with good hygiene. She has multiple tattoos and piercings. She does not show any psychomotor agitation or retardation. Her speech is spontaneous and goal- directed. Her mood is cheerful and affect is appropriate. She continues to deny hallucinations, delusional thinking, suicide and homicide thoughts. She is well oriented with good memory concentration general fund of knowledge etc. Diagnosis on discharge: Unspecified bipolar and related disorder F 31.9. Borderline personality features F 60.3. ALLERGY to sulfa, amoxicillin, clarithromycin, cortisone, Levaquin and Seldane. Obesity. History of hysterectomy. Patient was advised and agreed to take her medications as prescribed, not to drive or operate missionary if she feels sleepy, not to drink alcohol or use drugs, to learn better coping skills through DBT, to call her psychiatrist or therapist if she develops suicidal thoughts or feels confused and if she cannot get hold of them to go to nearest ER. Patient Condition at Discharge: Good Plan - Discharge Summary New Discharge Prescriptions: New Mag Hydrox/Al Hydrox/Simeth [Maalox] 30 ml PO Q4HR PRN cup PRN Reason: Gi Upset QUEtiapine [SEROquel] 50 mg PO HS 30 Days #30 tab Continue Albuterol Sulfate [Proair Hfa] 1 - 2 puff INHALATION RT-Q6H PRN PRN Reason: Dyspnea Ibuprofen [Motrin Ib] 400 mg PO Q6H PRN PRN Reason: Pain Discontinued FLUoxetine HCL [PROzac] 40 mg PO DAILY Discharge Medication List Albuterol Sulfate [Proair Hfa] 1 - 2 puff INHALATION RT-Q6H PRN 04/12/16 [ History] Ibuprofen [Motrin Ib] 400 mg PO Q6H PRN 05/02/18 [History] Mag Hydrox/Al Hydrox/Simeth [Maalox] 30 ml PO Q4HR PRN cup 05/04/18 [Rx] QUEtiapine [SEROquel] 50 mg PO HS 30 Days #30 tab 05/04/18 [Rx] Follow up Appointment(s)/Referral(s): Black Mcconnell MD [Primary Care Provider] - 1-2 days
== END 2018-05-04 11:52 | disposition home or self-care (01) | DRG 881 ==
LOC: EC 07:48 → 3MHU 13:32
PROVIDERS: ADMIT Psychiatry & Neurology Psychiatry; ATTEND Psychiatry & Neurology Psychiatry
DX: F32.9 Major depressive disorder, single episode, unspecified (principal); Z68.41 Body mass index [BMI] 40.0-44.9, adult; F41.9 Anxiety disorder, unspecified; K21.9 Gastro-esophageal reflux disease without esophagitis; I10 Essential (primary) hypertension; G43.909 Migraine, unspecified, not intractable, without status migrainosus; E66.9 Obesity, unspecified; F41.0 Panic disorder [episodic paroxysmal anxiety]; G47.30 Sleep apnea, unspecified; J45.20 Mild intermittent asthma, uncomplicated; Z79.899 Other long term (current) drug therapy; Z90.49 Acquired absence of other specified parts of digestive tract; Z90.710 Acquired absence of both cervix and uterus; Z98.51 Tubal ligation status; Z82.49 Family history of ischemic heart disease and other diseases of the circulatory system; Z83.3 Family history of diabetes mellitus; Z88.1 Allergy status to other antibiotic agents; Z88.0 Allergy status to penicillin; Z88.2 Allergy status to sulfonamides; Z88.8 Allergy status to other drugs, medicaments and biological substances; Z80.0 Family history of malignant neoplasm of digestive organs; Z80.3 Family history of malignant neoplasm of breast
CPT/HCPCS: 80053; 80306; 81001; 81025; 82075; 84443; 85025; 99285

== ENCOUNTER 2018-07-23 20:15 | Emergency (ER) | payer BC, OTHER ==
[2018-07-23 20:19] VITALS: RESP 18
[2018-07-23] MEDS ORDERED: HYDROCORTISONE 1% CREAM 30 GM TUBE TOPICAL STA (21:09)
[2018-07-23] MEDS ORDERED: hydrOXYzine HCL 25 MG TAB PO STA (21:09)
[2018-07-23] MEDS ORDERED: predniSONE 20 MG TAB PO STA (21:13)
--- NOTE | 2018-07-23 21:17 | ED ---
General Adult HPI - General Chief complaint: Recheck/Abnormal Lab/Rx Stated complaint: poss allergic reaction Time Seen by Provider: 07/23/18 20:42 Source: patient, family, RN notes reviewed Mode of arrival: ambulatory Limitations: no limitations - History of Present Illness Initial comments: This is a 33-year-old female presents emergency Department chief complaint possible ALLERGIC reaction. Patient states she's developed a rash over her face and diffuse itchiness that started overnight into today. Patient states that she was seen at another hospital and was told that she had infected acne and that she used meth. She states she does not use any illicit drugs states that she's never had any issues with acne in the past. Patient states that she was on Paxil recently and but states that was discontinued because she felt drowsy from this. Patient states he has not taken in over one week. Patient did remember that she used on new product which was a hydrating state on her face last night. Patient states she has a burning sensation all her face and itchy. Patient states she cannot stop itching she has taken multiple Benadryl doses today with no relief but she did try some calamine lotion and did help. - Related Data Home Medications Medication Instructions Recorded Confirmed Albuterol Sulfate [Proair Hfa] 1 - 2 puff INHALATION RT-Q6H PRN 04/12/16 Ibuprofen [Motrin Ib] 400 mg PO Q6H PRN 05/02/18 05/02/18 Previous Rx's Medication Instructions Recorded Mag Hydrox/Al Hydrox/Simeth 30 ml PO Q4HR PRN cup 05/04/18 [Maalox] QUEtiapine [SEROquel] 50 mg PO HS 30 Days #30 tab 05/04/18 hydrOXYzine HCL [Atarax] 25 mg PO TID PRN #15 tab 07/23/18 Allergies Allergy/AdvReac Type Severity Reaction Status Date / Time Sulfa (Sulfonamide Allergy Anaphylaxis Verified 07/23/18 20:19 Antibiotics) amoxicillin AdvReac Rash/Hives Verified 07/23/18 20:19 clarithromycin [From Biaxin] AdvReac Rash/Hives Verified 07/23/18 20:19 cortisone AdvReac Swelling Verified 07/23/18 20:19 levofloxacin [From Levaquin] AdvReac Rash/Hives Verified 07/23/18 20:19 terfenadine [From Seldane] AdvReac Diarrhea Verified 07/23/18 20:19 Review of Systems ROS Statement: Those systems with pertinent positive or pertinent negative responses have been documented in the HPI. ROS Other: All systems not noted in ROS Statement are negative. Past Medical History Past Medical History: Asthma, GERD/Reflux Additional Past Medical History / Comment(s): hx. prolactinoma(causes production of breast milk), hx. of high BP in past, not currently taking anything, hx migraines, sleep apnea, glaucoma History of Any Multi-Drug Resistant Organisms: None Reported Past Surgical History: Appendectomy, Section, Ear Surgery, Hysterectomy , Orthopedic Surgery, Tonsillectomy, Tubal Ligation, Uterine Ablation Additional Past Surgical History / Comment(s): left wrist surgery, several facial reconstructive surg. from dog bite as child, multiple tubes in ears, laser eye surgery. [facility] 12/23/2016 Past Anesthesia/Blood Transfusion Reactions: Previous Problems w/ Anesthesia, Family History of Problems w/ Anesthesia, Motion Sickness, Postoperative Nausea & Vomiting (PONV) Additional Past Anesthesia/Blood Transfusion Reaction / Comment(s): very slow to wake up from anesthesia,both parents hard to wake up Past Psychological History: Anxiety, Bipolar, Depression, Panic Disorder Smoking Status: Never smoker Past Alcohol Use History: Rare Past Drug Use History: None Reported - Past Family History Mother Family Medical History: AFIB, Diabetes Mellitus, Hypertension, Liver Disease, Thyroid Disorder Father Family Medical History: Diabetes Mellitus, Hypertension, Myocardial Infarction ( [place]), Thyroid Disorder General Exam Limitations: no limitations General appearance: alert, in no apparent distress Head exam: Present: atraumatic, normocephalic, normal inspection Eye exam: Present: normal appearance, PERRL, EOMI. Absent: scleral icterus, conjunctival injection, periorbital swelling ENT exam: Present: normal exam, normal oropharynx, mucous membranes moist, TM's normal bilaterally Neck exam: Present: normal inspection, full ROM. Absent: tenderness, meningismus, lymphadenopathy Respiratory exam: Present: normal lung sounds bilaterally. Absent: respiratory distress, wheezes, rales, rhonchi, stridor Cardiovascular Exam: Present: regular rate, normal rhythm, normal heart sounds. Absent: systolic murmur, diastolic murmur, rubs, gallop, clicks Skin exam: Present: rash (Erythematous maculopapular rash noted on her face with excoriation) Course Vital Signs 07/23/18 20:16 Temperature 98.3 F Pulse Rate 110 H Respiratory 18 Rate Blood Pressure 150/97 O2 Sat by Pulse 97 Oximetry Medical Decision Making - Medical Decision Making 33-year-old female presented for rash on her face, possible ALLERGIC reaction. Patient having contact dermatitis ALLERGIC reaction secondary to hydrating state that she applied to her face. Patient will be given Atarax, advised to use topical Benadryl cream or calamine lotion. Disposition Clinical Impression: Contact dermatitis, Allergic reaction Disposition: HOME SELF-CARE Condition: Stable Instructions: Contact Dermatitis (ED) Additional Instructions: Please return to the Emergency Department if symptoms worsen or any other concerns. Prescriptions: hydrOXYzine HCL [Atarax] 25 mg PO TID PRN #15 tab PRN Reason: Itching Is patient prescribed a controlled substance at d/c from ED?: No Referrals: Black Mcconnell MD [Primary Care Provider] - 1-2 days Time of Disposition: 21:17
[2018-07-23 21:29] VITALS: BP 144/81; PULSE 106; TEMP 97.4
== END 2018-07-23 21:32 | disposition home or self-care (01) ==
LOC: EC 20:15
DX: L23.89 Allergic contact dermatitis due to other agents (principal); Z88.0 Allergy status to penicillin; Z88.1 Allergy status to other antibiotic agents; Z88.2 Allergy status to sulfonamides; Z88.8 Allergy status to other drugs, medicaments and biological substances
CPT/HCPCS: 99282; J7512

== ENCOUNTER 2019-05-10 09:52 | Emergency (ER) | payer BC, OTHER ==
[2019-05-10] MEDS ORDERED: MORPHINE SULFATE 4 MG/ML SYRINGE IV STA (10:17)
[2019-05-10] MEDS ORDERED: PANTOPRAZOLE 40 MG/10 ML VIAL IVP STA (10:17)
[2019-05-10] MEDS ORDERED: ONDANSETRON 4 MG/2 ML VIAL IVP STA (10:17)
[2019-05-10] MEDS ORDERED: KETOROLAC 30 MG/ML 1 ML VIAL IVP STA (10:17)
[2019-05-10] MEDS ORDERED: SODIUM CHLORIDE 0.9% 1,000 ML IV STA ×2 (10:17)
--- NOTE | 2019-05-10 10:31 | ED ---
Abdominal Pain HPI - General Chief Complaint: Abdominal Pain Stated Complaint: back & abdominal pain/painful urination Time Seen by Provider: 05/10/19 10:06 Source: patient, RN notes reviewed, old records reviewed Mode of arrival: ambulatory Limitations: no limitations - History of Present Illness Initial Comments: Patient is a 33-year-old female who presents emergency department today complaining of left-sided flank pain and lower abdominal pain. Patient reports that she was diagnosed with urinary tract infection 3 days ago. She's been on Macrobid for the past 2 and half days. Patient states that she has had no significant fevers or chills. She does complain of nausea. No history of kidney stones. Surgical history includes cholecystectomy, appendectomy and hysterectomy. - Related Data Home Medications Medication Instructions Recorded Confirmed DULoxetine HCL [Cymbalta] 60 mg PO DAILY 05/10/19 05/10/19 Nitrofurantoin Monohyd/M-Cryst 100 mg PO Q12HR 05/10/19 05/10/19 [Macrobid] Ondansetron [Zofran] 4 mg PO TID PRN 05/10/19 05/10/19 Phenazopyridine [Pyridium] 200 mg PO TID 05/10/19 05/10/19 lamoTRIgine [LaMICtal] 200 mg PO DAILY 05/10/19 05/10/19 Previous Rx's Medication Instructions Recorded QUEtiapine [SEROquel] 50 mg PO HS 30 Days #30 tab 05/04/18 Ondansetron Odt [Zofran Odt] 4 mg PO Q8HR PRN #12 tab 05/10/19 traMADol HCL [Ultram] 50 mg PO Q4HR PRN 3 Days #18 tab 05/10/19 Allergies Allergy/AdvReac Type Severity Reaction Status Date / Time Sulfa (Sulfonamide Allergy Anaphylaxis Verified 05/10/19 10:13 Antibiotics) amoxicillin AdvReac Rash/Hives Verified 05/10/19 10:13 clarithromycin [From Biaxin] AdvReac Rash/Hives Verified 05/10/19 10:13 cortisone AdvReac Swelling Verified 05/10/19 10:13 levofloxacin [From Levaquin] AdvReac Rash/Hives Verified 05/10/19 10:13 terfenadine [From Seldane] AdvReac Diarrhea Verified 05/10/19 10:13 Review of Systems ROS Statement: Those systems with pertinent positive or pertinent negative responses have been documented in the HPI. ROS Other: All systems not noted in ROS Statement are negative. Past Medical History Past Medical History: Asthma, GERD/Reflux Additional Past Medical History / Comment(s): hx. prolactinoma(causes production of breast milk), hx. of high BP in past, not currently taking anything, hx migraines, sleep apnea, glaucoma History of Any Multi-Drug Resistant Organisms: None Reported Past Surgical History: Appendectomy, Section, Ear Surgery, Hysterectomy, Orthopedic Surgery, Tonsillectomy, Tubal Ligation, Uterine Ablation Additional Past Surgical History / Comment(s): left wrist surgery, several facial reconstructive surg. from dog bite as child, multiple tubes in ears, laser eye surgery. [facility] 12/23/2016 Past Anesthesia/Blood Transfusion Reactions: Previous Problems w/ Anesthesia, Family History of Problems w/ Anesthesia, Motion Sickness, Postoperative Nausea & Vomiting (PONV) Additional Past Anesthesia/Blood Transfusion Reaction / Comment(s): very slow to wake up from anesthesia,both parents hard to wake up Past Psychological History: Anxiety, Bipolar, Depression, Panic Disorder Smoking Status: Never smoker Past Alcohol Use History: Rare Past Drug Use History: Marijuana - Past Family History Mother Family Medical History: AFIB, Diabetes Mellitus, Hypertension, Liver Disease, Thyroid Disorder Father Family Medical History: Diabetes Mellitus, Hypertension, Myocardial Infarction ([place]), Thyroid Disorder General Exam - General Exam Comments Initial Comments: Pleasant 33-year-old female. No significant distress. Limitations: no limitations General appearance: alert, in no apparent distress Head exam: Present: atraumatic, normocephalic, normal inspection Eye exam: Present: normal appearance, PERRL, EOMI. Absent: scleral icterus, conjunctival injection, periorbital swelling ENT exam: Present: normal exam, mucous membranes moist Neck exam: Present: normal inspection. Absent: tenderness, meningismus, lymphadenopathy Respiratory exam: Present: normal lung sounds bilaterally. Absent: respiratory distress, wheezes, rales, rhonchi, stridor Cardiovascular Exam: Present: regular rate, normal rhythm, normal heart sounds. Absent: systolic murmur, diastolic murmur, rubs, gallop, clicks GI/Abdominal exam: Present: soft, tenderness (Left CVA tenderness.), normal bowel sounds. Absent: distended, guarding, rebound, rigid Extremities exam: Present: normal inspection, full ROM, normal capillary refill. Absent: tenderness, pedal edema, joint swelling, calf tenderness Back exam: Present: normal inspection Neurological exam: Present: alert, oriented X3, CN II-XII intact Course Vital Signs 05/10/19 09:54 Temperature 97.9 F Pulse Rate 93 Respiratory 20 Rate Blood Pressure 162/100 O2 Sat by Pulse 99 Oximetry Medical Decision Making - Medical Decision Making 33-year-old female process returns today complaining of left-sided abdominal pain, worse after urination. Patient states that seems or flank. Patient reports she is aUTI 4 days ago. Taking Macrobid. This patient's labwork was reviewed and unremarkable. She continues have some significant pain over the left lower quadrant flank. CT TM and pulses are. There is a large 7 cm cystic left sided ovarian mass. Patient had a transvaginal ultrasound confirmed no significant torsion but a 6.2 cm left adnexal mass. Patient has been advised of these results and needs to follow-up with Dr. Milner. She has a vaginal discharge or any other complaints. Patient will be discharged at this time a short course of Ultram. Discussed close PCP follow-up. - Lab Data Result diagrams: 05/10/19 10:20 05/10/19 10:20 Lab Results 05/10/19 05/10/19 05/10/19 Range/Units 10:20 10:20 10:20 WBC 8.4 (3.8-10.6) k/uL RBC 4.41 (3.80-5.40) m/uL Hgb 12.6 (11.4-16.0) gm/dL Hct 37.4 (34.0-46.0) % MCV 84.8 (80.0-100.0) fL MCH 28.5 (25.0-35.0) pg MCHC 33.7 (31.0-37.0) g/dL RDW 13.9 (11.5-15.5) % Plt Count 268 (150-450) k/uL Neutrophils % 64 % Lymphocytes % 26 % Monocytes % 5 % Eosinophils % 2 % Basophils % 0 % Neutrophils # 5.4 (1.3-7.7) k/uL Lymphocytes # 2.2 (1.0-4.8) k/uL Monocytes # 0.5 (0-1.0) k/uL Eosinophils # 0.2 (0-0.7) k/uL Basophils # 0.0 (0-0.2) k/uL Sodium 139 (137-145) mmol/L Potassium 4.3 (3.5-5.1) mmol/L Chloride 107 (98-107) mmol/L Carbon Dioxide 25 (22-30) mmol/L Anion Gap 7 mmol/L BUN 12 (7-17) mg/dL Creatinine 0.63 (0.52-1.04) mg/dL Est GFR (CKD-EPI)AfAm >90 (>60 ml/min/1.73 sqM) Est GFR (CKD-EPI)NonAf >90 (>60 ml/min/1.73 sqM) Glucose 82 (74-99) mg/dL Calcium 9.3 (8.4-10.2) mg/dL Total Bilirubin 0.3 (0.2-1.3) mg/dL AST 16 (14-36) U/L ALT 25 (9-52) U/L Alkaline Phosphatase 75 (38-126) U/L Total Protein 6.9 (6.3-8.2) g/dL Albumin 4.4 (3.5-5.0) g/dL Amylase 69 (30-110) U/L Lipase 259 (23-300) U/L Urine Color Yellow Urine Appearance Cloudy H (Clear) Urine pH 7.0 (5.0-8.0) Ur Specific [place] 1.014 (1.001-1.035) Urine Protein Negative (Negative) Urine Glucose (UA) Negative (Negative) Urine Ketones Negative (Negative) Urine Blood Negative (Negative) Urine Nitrite Negative (Negative) Urine Bilirubin Negative (Negative) Urine Urobilinogen <2.0 (<2.0) mg/dL Ur Leukocyte Esterase Negative (Negative) Urine WBC 2 (0-5) /hpf Ur Squamous Epith Cells 8 H (0-4) /hpf Amorphous Sediment Rare H (None) /hpf Urine Mucus Rare H (None) /hpf Disposition Clinical Impression: Left ovarian cyst Disposition: HOME SELF-CARE Condition: Good Instructions (If sedation given, give patient instructions): Ovarian Cyst (ED) Additional Instructions: Patient has follow-up with primary care doctor and [facility]. [facility] medications [facility] prescribed to the [facility]. Return to the emergency department if any alarming signs or symptoms occur. Prescriptions: traMADol HCL [Ultram] 50 mg PO Q4HR PRN 3 Days #18 tab PRN Reason: Pain Ondansetron Odt [Zofran Odt] 4 mg PO Q8HR PRN #12 tab PRN Reason: Nausea Is patient prescribed a controlled substance at d/c from ED?: Yes Referrals: Black Mcconnell MD [Primary Care Provider] - 1-2 days Carisa Milner DO [Doctor of Osteopathic Medicine] - 1-2 days Time of Disposition: 14:43
--- NOTE | 2019-05-10 10:50 | XR ---
EXAMINATION TYPE: XR KUB DATE OF EXAM: 05/10/2019 COMPARISON: NONE HISTORY: Left flank pain TECHNIQUE: One view abdominal series FINDINGS: The osseous structures are intact. The bowel gas pattern is nonspecific. Lung bases are clear. Curv ature the spine noted. Surgical clips in the pelvis. IMPRESSION: 1. Nonspecific abdomen.
[2019-05-10 11:21] LABS: Basophils % (A) 0 %; Eosinophils # (A) 0.2 k/uL (0-0.7); Eosinophils % (A) 2 %; HCT 37.4 % (34.0-46.0); HGB 12.6 gm/dL (11.4-16.0); Lymphocytes # (A) 2.2 k/uL (1.0-4.8); Lymphocytes % (A) 26 %; MCH 28.5 pg (25.0-35.0); MCHC 33.7 g/dL (31.0-37.0); MCV 84.8 fL (80.0-100.0); Mean Platelet Volume 7.2; Monocytes # (A) 0.5 k/uL (0-1.0); Monocytes % (A) 5 %; Neutrophils # (A) 5.4 k/uL (1.3-7.7); Neutrophils % (A) 64 %; Platelet Count 268 k/uL (150-450); RBC 4.41 m/uL (3.80-5.40); RDW 13.9 % (11.5-15.5); WBC 8.4 k/uL (3.8-10.6)
[2019-05-10 11:29] LABS: Amorphous Sediment,Urine Rare /hpf; Appearance,Urine Cloudy (Clear); Bilirubin,Urine Negative (Negative); Blood,Urine Negative (Negative); Color,Urine Yellow; Glucose,Urine (UA) Negative (Negative); Ketones,Urine Negative (Negative); Leukocyte Esterase,Urine Negative (Negative); Mucus,Urine Rare /hpf; Nitrite,Urine Negative (Negative); Protein,Urine Negative (Negative); Specific Gravity,Urine 1.014 (1.001-1.035); Squamous Epithelial Cell,Urine 8 /hpf (0-4); Urobilinogen,Urine <2.0 mg/dL (<2.0); WBC,Urine 2 /hpf (0-5)
[2019-05-10 11:31] LABS: ALT 25 U/L (9-52); AST 16 U/L (14-36); African American GFR (CKD) >90 (>60 ml/min/1.73 sqM); Albumin 4.4 g/dL (3.5-5.0); Alkaline Phosphatase 75 U/L (38-126); Amylase 69 U/L (30-110); Anion Gap 7 mmol/L; Blood Urea Nitrogen 12 mg/dL (7-17); Calcium 9.3 mg/dL (8.4-10.2); Carbon Dioxide 25 mmol/L (22-30); Chloride 107 mmol/L (98-107); Glucose 82 mg/dL (74-99); Lipase 259 U/L (23-300); Potassium 4.3 mmol/L (3.5-5.1); Sodium 139 mmol/L (137-145); Total Bilirubin 0.3 mg/dL (0.2-1.3); Total Protein 6.9 g/dL (6.3-8.2)
--- NOTE | 2019-05-10 13:09 | CT ---
EXAMINATION TYPE: CT abdomen pelvis wo con DATE OF EXAM: 05/10/2019 COMPARISON: CT same date HISTORY: Left flank and pelvic pain with urination. CT DLP: 1150.4 mGycm Automated exposure control for dose reduction was used. TECHNIQUE: Helical acquisition of images from the lung bases through the pelvis. FINDINGS: Lack of contrast could compromise sensitivity. LUNG BASES: No significant abnormality is appreciated. AORTA: No significant abnormality is appreciataed. LIVER/GB: Liver shows low attenuation compatible with hepatic steatosis, liver is enlarged PANCREAS: No significant abnormality is seen. SPLEEN: Enlarged ADRENALS: No significant abnormality is seen. KIDNEYS: No significant abnormality is seen. REPRODUCTIVE ORGANS: Right ovary is within normal limits. Uterus is not seen. There is a focus withi n the left adnexal region which shows low attenuation and measures approximate 7 cm in greatest dimen kanika URINARY BLADDER: No significant abnormality is seen. BOWEL: Patient is likely post appendectomy. Graft FREE AIR: No Free Air is visible. ASCITES: None visible. PELVIC ADENOPATHY: None visualized. RETROPERITONEAL ADENOPATHY: No Retroperitoneal Adenopathy visible. OSSEOUS STRUCTURES: No significant abnormality is seen. IMPRESSION: 7 CM CYSTIC LEFT ADNEXAL LESION COULD POSSIBLY REPRESENT CYST POSTOP CHANGES, PELVIC ULTRASOUND MAY B E OF BENEFIT. HEPATOSPLENOMEGALY.
[2019-05-10] MEDS ORDERED: MORPHINE SULFATE 4 MG/ML SYRINGE IVP STA (13:40)
--- NOTE | 2019-05-10 14:24 | US ---
EXAMINATION TYPE: US transvaginal DATE OF EXAM: 05/10/2019 COMPARISON: CT 05/10/2019, US 10/06/2016 CLINICAL HISTORY: Pain. Uterus surgically absent TECHNIQUE: . Transvaginal sonographic images of the pelvis were acquired. Date of LMP: 2 years ago EXAM MEASUREMENTS: Uterus: Surgically absent Endometrial Stripe: Surgically absent Right Ovary: 3.6 x 1.8 x 2.5 cm Left Ovary: 7.1 x 6.3 x 6.5 cm 1. Uterus: Surgically absent 2. Endometrium: Surgically absent 3. Right Ovary: wnl 4. Left Ovary: 6.2 x 4.8 x 6.0 cm complex appearing cystic area in the left adnexa Spectral, color and waveform doppler imaging shows good arterial and venous flow within the ovaries ; there is no evidence for ovarian torsion. 5. Bilateral Adnexa: wnl 6. Posterior cul-de-sac: wnl IMPRESSION: 1. There is a complex 6.2 cm mass in the left adnexa likely ovarian.
[2019-05-10 14:53] VITALS: BP 137/65; PULSE 91; RESP 16; TEMP 98.6
== END 2019-05-10 14:53 | disposition home or self-care (01) ==
LOC: EC 09:52
DX: N83.202 Unspecified ovarian cyst, left side (principal); N89.8 Other specified noninflammatory disorders of vagina; F31.9 Bipolar disorder, unspecified; F41.0 Panic disorder [episodic paroxysmal anxiety]; Z79.899 Other long term (current) drug therapy; Z88.0 Allergy status to penicillin; Z88.1 Allergy status to other antibiotic agents; Z88.2 Allergy status to sulfonamides; Z88.8 Allergy status to other drugs, medicaments and biological substances; Z90.710 Acquired absence of both cervix and uterus; Z90.49 Acquired absence of other specified parts of digestive tract; Z90.89 Acquired absence of other organs
CPT/HCPCS: 36415; 80053; 82150; 83690; 85025; 81001; 87040; 87086; 74018; 76830; 74176; 99285; 96374; 96375 ×3; 96376; 96361 ×4; J2270; J2405; J1885; C9113; 93975

== ENCOUNTER 2019-05-20 18:35 | Emergency (ER) | payer BC, OTHER ==
[2019-05-20] MEDS ORDERED: SODIUM CHLORIDE 0.9% 1,000 ML IV STA (19:09)
[2019-05-20 20:10] LABS: Basophils % (A) 1 %; Eosinophils # (A) 0.3 k/uL (0-0.7); Eosinophils % (A) 4 %; HGB 11.9 gm/dL (11.4-16.0); Lymphocytes % (A) 35 %; MCH 28.3 pg (25.0-35.0); MCHC 33.2 g/dL (31.0-37.0); MCV 85.2 fL (80.0-100.0); Mean Platelet Volume 6.6; Monocytes # (A) 0.5 k/uL (0-1.0); Monocytes % (A) 6 %; Neutrophils # (A) 4.5 k/uL (1.3-7.7); Neutrophils % (A) 52 %; Platelet Count 322 k/uL (150-450); RBC 4.22 m/uL (3.80-5.40); RDW 13.5 % (11.5-15.5); WBC 8.6 k/uL (3.8-10.6)
[2019-05-20 20:20] LABS: ALT 32 U/L (9-52); AST 27 U/L (14-36); African American GFR (CKD) >90 (>60 ml/min/1.73 sqM); Albumin 4.3 g/dL (3.5-5.0); Alkaline Phosphatase 86 U/L (38-126); Anion Gap 10 mmol/L; Blood Urea Nitrogen 10 mg/dL (7-17); Carbon Dioxide 26 mmol/L (22-30); Chloride 103 mmol/L (98-107); Glucose 99 mg/dL (74-99); Lipase 59 U/L (23-300); Potassium 4.5 mmol/L (3.5-5.1); Sodium 139 mmol/L (137-145); Total Bilirubin 0.4 mg/dL (0.2-1.3); Total Protein 6.7 g/dL (6.3-8.2)
[2019-05-20] MEDS ORDERED: KETOROLAC 30 MG/ML 1 ML VIAL IVP STA (20:35)
--- NOTE | 2019-05-20 20:47 | ED ---
General Adult HPI - General Source: patient, RN notes reviewed, old records reviewed Mode of arrival: ambulatory Limitations: no limitations <Xu Crow - Last Filed: 05/20/19 23:19> <Priscilla Munoz - Last Filed: 05/21/19 05:56> - General Chief complaint: Abdominal Pain Stated complaint: ovarian cysts/bloating Time Seen by Provider: 05/20/19 19:08 - History of Present Illness Initial comments: 33-year-old female patient past history of hysterectomy presents to ED with abdominal pain has been ongoing for approximately 3 weeks. Patient reports that she has pain in her left lower quadrant which is continuing. Patient reports that she is also having nausea and abdominal bloating. Patient had a recent evaluation for this approximately 10 days ago in which she was discovered to have a left ovarian cyst. Patient denies any other complaints this time. Denies any chest pain shortness of breath. Systemic: Pt denies fatigue, fever/chills, rash. Pt denies weakness, night sweats, weight loss. Neuro: Pt denies headache, visual disturbances, syncope or pre-syncope. HEENT: Pt denies ocular discharge or irritation, otalgia, rhinorrhea, pharyngitis or notable lymphadenopathy. Cardiopulmonary: Pt denies chest pain, SOB, heart palpitations, dyspnea on exertion. Abdominal/GI: Pt denies diarrhea. : Pt denies dysuria, burning w/ urination, frequency/urgency. Denies new onset urinary or bowel incontinence. MSK: Pt denies myalgia, loss of strength or function in extremities. Neuro: Pt denies new onset weakness, paresthesias. (Xu Crow) - Related Data Home Medications Medication Instructions Recorded Confirmed DULoxetine HCL [Cymbalta] 60 mg PO HS 05/10/19 05/20/19 lamoTRIgine [LaMICtal] 200 mg PO BID 05/10/19 05/20/19 Albuterol Inhaler [Ventolin Hfa 2 puff INHALATION RT-Q6H PRN 05/20/19 05/20/19 Inhaler] Previous Rx's Medication Instructions Recorded QUEtiapine [SEROquel] 50 mg PO HS 30 Days #30 tab 05/04/18 Allergies Allergy/AdvReac Type Severity Reaction Status Date / Time Sulfa (Sulfonamide Allergy Anaphylaxis Verified 05/20/19 20:09 Antibiotics) amoxicillin AdvReac Rash/Hives Verified 05/20/19 20:09 clarithromycin [From Biaxin] AdvReac Rash/Hives Verified 05/20/19 20:09 cortisone AdvReac Swelling Verified 05/20/19 20:09 levofloxacin [From Levaquin] AdvReac Rash/Hives Verified 05/20/19 20:09 terfenadine [From Seldane] AdvReac Diarrhea Verified 05/20/19 20:09 Review of Systems ROS Other: All systems not noted in ROS Statement are negative. <Xu Crow - Last Filed: 05/20/19 23:19> ROS Other: All systems not noted in ROS Statement are negative. <Priscilla Munoz - Last Filed: 05/21/19 05:56> ROS Statement: Those systems with pertinent positive or pertinent negative responses have been documented in the HPI. Past Medical History Past Medical History: Asthma, GERD/Reflux Additional Past Medical History / Comment(s): hx. prolactinoma(causes production of breast milk), hx. of high BP in past, not currently taking anything, hx migraines, sleep apnea, glaucoma History of Any Multi-Drug Resistant Organisms: None Reported Past Surgical History: Appendectomy, Section, Ear Surgery, Hysterectomy, Orthopedic Surgery, Tonsillectomy, Tubal Ligation, Uterine Ablation Additional Past Surgical History / Comment(s): left wrist surgery, several facial reconstructive surg. from dog bite as child, multiple tubes in ears, la ser eye surgery. [facility] 12/23/2016 Past Anesthesia/Blood Transfusion Reactions: Previous Problems w/ Anesthesia, Family History of Problems w/ Anesthesia, Motion Sickness, Postoperative Nausea & Vomiting (PONV) Additional Past Anesthesia/Blood Transfusion Reaction / Comment(s): very slow to wake up from anesthesia,both parents hard to wake up Past Psychological History: Anxiety, Bipolar, Depression, Panic Disorder Smoking Status: Never smoker Past Alcohol Use History: Rare Past Drug Use History: Marijuana - Past Family History Mother Family Medical History: AFIB, Diabetes Mellitus, Hypertension, Liver Disease, Thyroid Disorder Father Family Medical History: Diabetes Mellitus, Hypertension, Myocardial Infarction ([place]), Thyroid Disorder <Xu Crow - Last Filed: 05/20/19 23:19> General Exam Limitations: no limitations <Xu Crow - Last Filed: 05/20/19 23:19> - General Exam Comments Initial Comments: Constitutional: NAD, AOX3, Pt has pleasant affect. HEENT: NC/AT, trachea midline, neck supple, no lymphadenopathy. Posterior pharynx non erythematous, without exudates. External ears appear normal, without discharge. Mucous membranes moist. Eyes PERRLA, EOM intact. There is no scleral icterus. No pallor noted. Cardiopulmonary: RRR, no murmurs, rubs or gallops, no JVD noted. Lungs CTAB in anterior and posterior wells. No peripheral edema. Abdominal exam: Abdomen soft and non-distended. Abdomen non-tender to palpation in all 4 quadrants. Mild amount of left adnexal tenderness, no right adnexal tenderness. Bowel sounds active in LLQ. No hepatosplenomegaly. No ecchymosis Neuro: CN II-XII grossly intact. No nuchal rigidity. No raccon eyes, no valles sign, no hemotympanum. No cervical spinal tenderness. MSK: No posterior calf tenderness bilaterally, homans sign negative bilaterally. Posterior tibialis and radial pulse +2 bilaterally. Sensation intact in upper and lower extremities. Full active ROM in upper and lower extremities, 5/5 stregnth. (Xu Crow) Course Vital Signs 05/20/19 05/20/19 05/20/19 18:40 20:00 23:07 Temperature 99.2 F 98.5 F 97.6 F Pulse Rate 119 H 98 67 Respiratory 18 19 18 Rate Blood Pressure 179/99 120/76 123/90 O2 Sat by Pulse 97 96 99 Oximetry Medical Decision Making - Lab Data Result diagrams: 05/20/19 19:38 05/20/19 19:38 <Xu Crow - Last Filed: 05/20/19 23:19> - Lab Data Result diagrams: 05/20/19 19:38 05/20/19 19:38 <Priscilla Munoz - Last Filed: 05/21/19 05:56> - Medical Decision Making 33-year-old female patient past history of hysterectomy presents to ED with abdominal pain has been ongoing for approximately 3 weeks. Patient reports that she has pain in her left lower quadrant which is continuing. Patient reports that she is also having nausea and abdominal bloating. Patient had a recent evaluation for this approximately 10 days ago in which she was discovered to have a left ovarian cyst. Patient denies any other complaints this time. Denies any chest pain shortness of breath. Patient vital signs signs stable, afebrile. Physical exam displayed mild amount of left adnexal tenderness. No other acute pathology. O2 investigations revealed nonspecific CBC, CMP, UA. Lipase within normal limits. Transvaginal ultrasound displayed a large left ovarian cyst, no sign of torsion. Patient presents established with [facility]. Patient will be discharged will follow-up with [facility] and primary care provider. Shared decision making patient did not wish to have additional computed tomography of abdomen due to Radiation burn and unchanged symptoms. Case discussed with Dr. Munoz. (Xu Crow) I was available for consultation in the emergency department. The history and physical exam were done by the midlevel provider. I was consulted for this patient's care. I reviewed the case with the midlevel provider and based on their presentation of the patient, I agree with the assessment, medical decision making and plan of care as documented. Chart was dictated using [employer] dictation software. Attempts were made to correct any dictation errors however some typographical errors may persist. (Priscilla Munoz) - Lab Data Lab Results 05/20/19 05/20/19 05/20/19 Range/Units 19:38 19:38 20:36 WBC 8.6 (3.8-10.6) k/uL RBC 4.22 (3.80-5.40) m/uL Hgb 11.9 (11.4-16.0) gm/dL Hct 36.0 (34.0-46.0) % MCV 85.2 (80.0-100.0) fL MCH 28.3 (25.0-35.0) pg MCHC 33.2 (31.0-37.0) g/dL RDW 13.5 (11.5-15.5) % Plt Count 322 (150-450) k/uL Neutrophils % 52 % Lymphocytes % 35 % Monocytes % 6 % Eosinophils % 4 % Basophils % 1 % Neutrophils # 4.5 (1.3-7.7) k/uL Lymphocytes # 3.0 (1.0-4.8) k/uL Monocytes # 0.5 (0-1.0) k/uL Eosinophils # 0.3 (0-0.7) k/uL Basophils # 0.0 (0-0.2) k/uL Sodium 139 (137-145) mmol/L Potassium 4.5 (3.5-5.1) mmol/L Chloride 103 (98-107) mmol/L Carbon Dioxide 26 (22-30) mmol/L Anion Gap 10 mmol/L BUN 10 (7-17) mg/dL Creatinine 0.61 (0.52-1.04) mg/dL Est GFR (CKD-EPI)AfAm >90 (>60 ml/min/1.73 sqM) Est GFR (CKD-EPI)NonAf >90 (>60 ml/min/1.73 sqM) Glucose 99 (74-99) mg/dL Calcium 9.0 (8.4-10.2) mg/dL Total Bilirubin 0.4 (0.2-1.3) mg/dL AST 27 (14-36) U/L ALT 32 (9-52) U/L Alkaline Phosphatase 86 (38-126) U/L Total Protein 6.7 (6.3-8.2) g/dL Albumin 4.3 (3.5-5.0) g/dL Lipase 59 (23-300) U/L Urine Color Colorless Urine Appearance Clear (Clear) Urine pH 5.5 (5.0-8.0) Ur Specific [place] 1.003 (1.001-1.035) Urine Protein Negative (Negative) Urine Glucose (UA) Negative (Negative) Urine Ketones Negative (Negative) Urine Blood Negative (Negative) Urine Nitrite Negative (Negative) Urine Bilirubin Negative (Negative) Urine Urobilinogen <2.0 (<2.0) mg/dL Ur Leukocyte Esterase Negative (Negative) Disposition Is patient prescribed a controlled substance at d/c from ED?: No <Xu Crow - Last Filed: 05/20/19 23:19> <Priscilla Munoz - Last Filed: 05/21/19 05:56> Clinical Impression: Ovarian cyst Disposition: HOME SELF-CARE Condition: Stable Instructions (If sedation given, give patient instructions): Ovarian Cyst (ED) Additional Instructions: Patient to adhere to previously discussed treatment plan and will take medication(s) as directed. Patient to follow up with PCP in 1-2 days. Patient to return to ED if symptoms do not improve. Take medication as needed. Follow up with previous established [facility] and primary care provider tomorrow. Return to ER if condition worsens. Referrals: Black Mcconnell MD [Primary Care Provider] - 1-2 days
[2019-05-20 21:12] LABS: Appearance,Urine Clear (Clear); Bilirubin,Urine Negative (Negative); Blood,Urine Negative (Negative); Color,Urine Colorless; Glucose,Urine (UA) Negative (Negative); Ketones,Urine Negative (Negative); Leukocyte Esterase,Urine Negative (Negative); Nitrite,Urine Negative (Negative); PH, Urine 5.5 (5.0-8.0); Protein,Urine Negative (Negative); Specific Gravity,Urine 1.003 (1.001-1.035); Urobilinogen,Urine <2.0 mg/dL (<2.0)
--- NOTE | 2019-05-20 21:34 | US ---
EXAMINATION TYPE: US transvaginal DATE OF EXAM: 05/20/2019 COMPARISON: US CLINICAL HISTORY: pain. Pelvic pain x 3 weeks. Hysterectomy 2017. Pt has both ovaries. Hx ovarian cys t. 2 C-Sections. . TECHNIQUE: Transvaginal (TV). Date of LMP: Hysterectomy 2017 EXAM MEASUREMENTS: Uterus: Hysterectomy. Right Ovary: Not seen Left Ovary: appears to be midline/slightly left measurin.6 x 7.3 x 7.8 cm *Limited study due to bowel 3. Right Ovary: Not seen 4. Left Ovary: Anechoic area seen measurin.0 x 6.5 x 8.0 cm Spectral, color and waveform doppler imaging shows good arterial and venous flow within the left ov manuel; there is no evidence for ovarian torsion of the left ovary. Right ovary not seen 5. Bilateral Adnexa: appears wnl IMPRESSION: Thin-walled large cystic pelvic mass on the left side appears to be related to ovarian cy st. No evidence of ovarian torsion on the left side. Right ovary not seen.
--- NOTE | 2019-05-20 22:02 | XR ---
EXAMINATION TYPE: XR KUB DATE OF EXAM: 05/20/2019 COMPARISON: 05/10/2019 HISTORY: Nausea and vomiting TECHNIQUE: 2 views upright FINDINGS: Bowel gas pattern is normal. There is no sign of intestinal obstruction or pneumoperitoneum . There are surgical clips in the pelvis. Fecal pattern is fairly normal. Lung bases are clear. There is mild lumbar levoscoliosis. There is no sign of a mass. IMPRESSION: Nonacute abdomen. No change.
[2019-05-20] MEDS ORDERED: ONDANSETRON 4 MG ODT STARTER PACK 2 TAB BTL PO STA (22:30)
[2019-05-20] MEDS ORDERED: ACET/COD 300 MG/30 MG STARTER PACK 6 TAB BTL PO STA (22:30)
[2019-05-20 23:26] VITALS: BP 123/90; PULSE 67; RESP 18; TEMP 97.6
== END 2019-05-20 23:07 | disposition home or self-care (01) ==
LOC: EC 18:35
DX: N83.202 Unspecified ovarian cyst, left side (principal); R14.0 Abdominal distension (gaseous); R11.0 Nausea; J45.909 Unspecified asthma, uncomplicated; F31.9 Bipolar disorder, unspecified; F41.0 Panic disorder [episodic paroxysmal anxiety]; Z88.0 Allergy status to penicillin; Z88.1 Allergy status to other antibiotic agents; Z88.2 Allergy status to sulfonamides; Z88.8 Allergy status to other drugs, medicaments and biological substances; Z79.899 Other long term (current) drug therapy; Z87.19 Personal history of other diseases of the digestive system; Z90.49 Acquired absence of other specified parts of digestive tract; Z90.710 Acquired absence of both cervix and uterus; Z53.29 Procedure and treatment not carried out because of patient's decision for other reasons
CPT/HCPCS: 99285; 96374; 96361 ×2; 36415; 80053; 83690; 85025; 81003; 74018; 93976; 76830; J1885; S0119

== ENCOUNTER → 2019-06-11 | Outpatient (CLI) | payer BC, OTHER ==
[2019-06-11 09:35] LABS: Basophils % (A) 1 %; Eosinophils # (A) 0.2 k/uL (0-0.7); Eosinophils % (A) 2 %; HCT 38.9 % (34.0-46.0); HGB 12.5 gm/dL (11.4-16.0); Lymphocytes # (A) 2.6 k/uL (1.0-4.8); Lymphocytes % (A) 30 %; MCH 28.2 pg (25.0-35.0); MCHC 32.1 g/dL (31.0-37.0); MCV 88.1 fL (80.0-100.0); Monocytes # (A) 0.4 k/uL (0-1.0); Monocytes % (A) 5 %; Neutrophils # (A) 5.3 k/uL (1.3-7.7); Neutrophils % (A) 62 %; Platelet Count 271 k/uL (150-450); RBC 4.41 m/uL (3.80-5.40); RDW 14.1 % (11.5-15.5); WBC 8.6 k/uL (3.8-10.6)
[2019-06-11 09:46] LABS: African American GFR (CKD) >90 (>60 ml/min/1.73 sqM); Anion Gap 8 mmol/L; Blood Urea Nitrogen 13 mg/dL (7-17); Calcium 9.4 mg/dL (8.4-10.2); Carbon Dioxide 27 mmol/L (22-30); Chloride 105 mmol/L (98-107); Glucose 123 mg/dL (74-99); Potassium 4.9 mmol/L (3.5-5.1); Sodium 140 mmol/L (137-145)
== END | disposition home or self-care (01) ==
LOC: LABPAT 08:06
PROVIDERS: ATTEND Obstetrics & Gynecology
DX: Z01.812 Encounter for preprocedural laboratory examination (principal)
CPT/HCPCS: 80048; 85025

== ENCOUNTER 2019-06-20 05:47 | Inpatient (IN) | payer BC, OTHER ==
[2019-06-10 14:42] VITALS: BMI 46.9
--- NOTE | 2019-06-19 17:14 | P.HPOB ---
History of Present Illness H&P Date: 06/19/19 Chief Complaint: Large left ovarian cyst, pelvic pain This is a 33-year-old female 2 para 2 who presents for exploratory laparotomy with left oophorectomy, possible right oophorectomy due to large complex left ovarian cyst. She was seen in the emergency room in April for left- sided pain but she has been having constant pain since March. The pain has been worse when she urinates. She was treated for a urinary tract infection with an antibiotic that did not help her pain. She had a computed tomography scan on May 102018 that showed a left ovarian cyst measuring 7 cm an ultrasound performed the same day showing a complex left ovarian cyst measuring 6.2 x 4.8 x 6 cm. She had another ultrasound on May 20 that showed a left ovarian cyst measuring 7 x 6.5 x 8 cm. She has been using ibuprofen as needed for pain but recently did need to use some [place] for the pain. The pain initially started fairly suddenly and was sharp with some aching and throbbing noted. She did have some nausea along with the pain. She would like to preserve her right ovary as long as it is not diseased. She also did have a CA-125 level drawn on 05/28/2019 that was 20.1. Obstetrical history: . History of 2 deliveries. Gynecologic history: No history of sexual transmitted diseases. She has had a tubal ligation followed by hysterectomy. Social history: She is . 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 Review of Systems Constitutional: Denies chills, Denies fever Eyes: denies blurred vision, denies pain Ears, nose, mouth and throat: Denies sore throat Cardiovascular: Denies chest pain, Denies shortness of breath Respiratory: Denies cough Gastrointestinal: Reports abdominal pain, Reports nausea Genitourinary: Reports urgency, Reports urinary frequency Menstruation: Reports amenorrhea, Reports post hysterectomy Musculoskeletal: Denies myalgias Integumentary: Denies pruritus, Denies rash Neurological: Reports headaches Psychiatric: Reports anxiety, Reports irritability Past Medical History Past Medical History: Asthma, Hypertension, Sleep Apnea/CPAP/BIPAP Additional Past Medical History / Comment(s): glaucoma, small prolactinoma History of Any Multi-Drug Resistant Organisms: None Reported Past Surgical History: Adenoidectomy, Appendectomy, Section, Ear Surgery, Hysterectomy, Orthopedic Surgery, Tonsillectomy, Tubal Ligation, Uterine Ablation Additional Past Surgical History / Comment(s): left wrist surgery, several facial reconstructive surg. from dog bite as child, multiple tubes in ears, laser eye surgery. [facility] 12/23/2016 Past Anesthesia/Blood Transfusion Reactions: Previous Problems w/ Anesthesia, Family History of Problems w/ Anesthesia, Motion Sickness, Postoperative Nausea & Vomiting (PONV) Additional Past Anesthesia/Blood Transfusion Reaction / Comment(s): very slow to wake up from anesthesia,both parents hard to wake up Past Psychological History: Anxiety Smoking Status: Never smoker Past Alcohol Use History: Occasional Past Drug Use History: None Reported - Past Family History Mother Family Medical History: AFIB, Diabetes Mellitus, Hypertension, Liver Disease, Thyroid Disorder Father Family Medical History: Diabetes Mellitus, Hypertension, Myocardial Infarction (PR), Thyroid Disorder Medications and Allergies Home Medications Medication Instructions Recorded Confirmed Type QUEtiapine [SEROquel] 50 mg PO HS 30 Days #30 tab 05/04/18 06/10/19 Rx DULoxetine HCL [Cymbalta] 60 mg PO QAM 05/10/19 06/10/19 History lamoTRIgine [LaMICtal] 200 mg PO QAM 05/10/19 06/10/19 History Albuterol Inhaler [Ventolin Hfa 2 puff INHALATION RT-Q6H PRN 05/20/19 06/10/19 History Inhaler] Ibuprofen [Motrin] 800 mg PO Q8H 06/10/19 06/10/19 History lamoTRIgine [LaMICtal] 100 mg PO HS 06/10/19 06/10/19 History Allergies Allergy/AdvReac Type Severity Reaction Status Date / Time Sulfa (Sulfonamide Allergy Anaphylaxis Verified 05/20/19 20:09 Antibiotics) amoxicillin AdvReac Rash/Hives Verified 06/19/19 17:12 clarithromycin [From Biaxin] AdvReac Rash/Hives Verified 06/19/19 17:12 cortisone AdvReac Swelling Verified 06/19/19 17:12 levofloxacin [From Levaquin] AdvReac Rash/Hives Verified 06/19/19 17:12 terfenadine [From Seldane] AdvReac Rash/Hives Verified 06/19/19 17:12 Exam Osteopathic Statement: *. No significant issues noted on an osteopathic structural exam other than those noted in the History and Physical/Consult. HEENT: Within normal limits Heart: Regular rate and rhythm Lungs: Clear to auscultation bilaterally Abdomen: Soft, tender in the left lower quadrant. Pelvic exam: Left adnexa is mildly tender and ovary is enlarged. There is fullness posterior to the vaginal cuff. Right adnexa is nontender and nonenlarged. Extremities: Negative Homans Assessment and Plan (1) Complex cyst of left ovary Status: Acute Code(s): N83.292 - OTHER OVARIAN CYST, LEFT SIDE SNOMED Code(s): 51912905709301885 Plan: Proceed with exploratory laparotomy with left oophorectomy and possible right oophorectomy. I have discussed the risks, benefits, and alternative therapies for the above-mentioned procedure and for both sedation/anesthesia as well as necessary blood products administration, if indicated, as they pertain to this patient. The patient has indicated her understanding and acceptance of the risks and procedures discussed.
[~2019-06-20 05:47] MED LIST changes: -CLINDAMYCIN 900 MG in DEXTROSE 5% IN WATER 50 ML IVPB ONE; +DEXAMETHASONE SOD PHOSPHATE 10 MG/ML 1 ML VIAL IV ONE; -HYDROmorphone 1 MG/ML 1 ML SYRINGE IVP PRN; +LIDOCAINE 1% 20 ML VIAL (10MG/ML) FOR IV START INTRADERMA PRN; -ONDANSETRON 4 MG/2 ML VIAL IVP ONE; +Pre Op ABX Message 1 EACH MISC MISCELLANE ONE
[2019-06-20] MEDS: ONDANSETRON 4 MG/2 ML VIAL IVP ONE ×2 (06:29→08:55)
[2019-06-20] MEDS ORDERED: LIDOCAINE 1% INJ 10MG/ML (20 ML MDV) ONE (07:26)
[2019-06-20] MEDS ORDERED: fentaNYL (PF) 50 MCG/ML 2 ML AMP ONE (07:26)
[2019-06-20] MEDS ORDERED: PHENYLEPHRINE-0.9% NACL SYG 1 MG/10 ML SYRINGE ONE (07:26)
[2019-06-20] MEDS ORDERED: MIDAZOLAM 2 MG/2 ML VIAL ONE (07:26)
[2019-06-20] MEDS ORDERED: NEOSTIGMINE 1 MG/ML 10 ML VIAL ONE (07:26)
[2019-06-20] MEDS ORDERED: GLYCOPYRROLATE 0.2 MG/ML 2 ML VIAL ONE (07:26)
[2019-06-20] MEDS ORDERED: SUCCINYLCHOLINE CHLORIDE 100 MG/5 ML SYR IV ONE (07:26)
[2019-06-20] MEDS ORDERED: PROPOFOL 10 MG/ML 20 ML VIAL IV ONE (07:26)
[2019-06-20] MEDS ORDERED: ROCURONIUM BROMIDE 10 MG/ML 10 ML VIAL IV ONE (07:26)
[2019-06-20] MEDS ORDERED: HYDROmorphone (PF) 1 MG/ML ONE (07:26)
[2019-06-20] MEDS ORDERED: SODIUM CHLORIDE 0.9% 50 ML with ceFAZolin 2,000 MG IV ONE ×2 (07:43)
--- NOTE | 2019-06-20 08:29 | P.OP ---
Date of Procedure: 06/20/19 Preoperative Diagnosis: Large left ovarian cyst Postoperative Diagnosis: Normal sized left ovary Pelvic adhesions Procedure(s) Performed: Exploratory laparotomy with left oophorectomy Lysis of adhesions Anesthesia: ROSE Surgeon: Carisa Milner Brokerage Branch Manager #1: Jair Huizar Estimated Blood Loss (ml): 25 Pathology: other (Left ovary) Condition: stable Disposition: floor Indications for Procedure: This is a 33-year-old female 2 para 2 who presents for exploratory laparotomy with left oophorectomy, possible right oophorectomy due to large complex left ovarian cyst. She was seen in the emergency room in April for left- sided pain but she has been having constant pain since March. The pain has been worse when she urinates. She was treated for a urinary tract infection with an antibiotic that did not help her pain. She had a computed tomography scan on May 102018 that showed a left ovarian cyst measuring 7 cm an ultrasound performed the same day showing a complex left ovarian cyst measuring 6.2 x 4.8 x 6 cm. She had another ultrasound on May 20 that showed a left ovarian cyst measuring 7 x 6.5 x 8 cm. She has been using ibuprofen as needed for pain but recently did need to use some [place] for the pain. The pain initially started f airly suddenly and was sharp with some aching and throbbing noted. She did have some nausea along with the pain. She would like to preserve her right ovary as long as it is not diseased. She also did have a CA-125 level drawn on 05/28/2019 that was 20.1. Operative Findings: A large amount of omental adhesions were noted in the pelvic area. The left ovary was completely adhesed behind the omental adhesions in the pelvic cul-de-sac. Once the left ovary was identified, it was noted to be normal size but it was adhesed to omentum and the pelvic cul-de-sac. The right ovary appeared normal with some small follicular change and did also have a small adhesion to the omentum. Description of Procedure: The patient was taken to the operating room and is placed in the dorsal supine position. She is prepped and draped in the normal sterile fashion including Puentes catheter insertion. A Pfannenstiel skin incision was made through the previous laparotomy scar. A second knife was used to carry the incision down to the underlying layer fascia. The fascia was nicked in the midline and extended laterally bilaterally with Meléndez scissors. Next the superior aspect of the fascial incision was grasped with Melani clamps and dissected off the underlying rectus muscle in the midline with Meléndez scissors. The inferior aspect of the fascial incision was grasped with Melani clamps, and dissected off the underlying rectus muscle in the midline with Meléndez scissors. Next the peritoneum was identified, tented up with 2 hemostats, and then entered with a scalpel. The peritoneal layer was then extended superiorly and inferiorly with Meléndez scissors. There was noted to be some omental adhesions at the superior aspect of the incision. Next a Joe retractor is placed and the bladder blade was inserted. A 3 yard moist laparotomy sponges used to pack the bowels. The pelvic contents were inspected. The right ovary is visualized and had a slight adhesion to the omentum. This was released with Metzenbaum scissors. The right ovary overall appeared normal with some small follicular change. The left ovary was not immediately identified. There is significant amount of bowel and omentum adhesed in the pelvic area. Meticulous sharp dissection with Metzenbaum scissors to remove the omental adhesion to the bladder area was carried out. The left ovary was then bluntly dissected away from the pelvic sidewall. Once it was identified, it did appear normal sized. Continued blunt and sharp dissection was carried out until the ovary was freed. Next the infundibulopelvic ligament is then clamped with a Vianey clamp, cut with Meléndez scissors, and then sutured with 0 Vicryl suture in a Vianey transfixion stitch. The specimen was removed from the field. Good hemostasis was noted. Copious irrigation is carried out and hemostasis is noted. All sponges and instruments are removed from the abdomen. All sponge counts are correct. Next the peritoneal layer is closed with 0 Vicryl suture in a running fashion. Next the muscle layer is reapproximated with 0 Vicryl suture in interrupted stitches. Next the fascial layer is closed with 0 PDS suture with 2 sutures meeting in the midline and the knots buried on either side and in the midline. Next the subcutaneous tissue is closed with 3-0 Vicryl suture in a running fashion. Next the skin is closed with herman. All sponges and instrument counts are correct. The patient is then taken to recovery room in stable condition.
[2019-06-20] MEDS: HYDROmorphone 0.5 MG/0.5 ML SYRINGE IVP PRN ×4 (08:55→09:45)
[2019-06-20] MEDS ORDERED: KETOROLAC 30 MG/ML 1 ML VIAL IVP PRN (09:11)
[2019-06-20] MEDS ORDERED: METOCLOPRAMIDE 5 MG/ML 2 ML VIAL IVP PRN (09:11)
[2019-06-20] MEDS ORDERED: NALOXONE 0.4 MG/ML 1 ML VIAL IV PRN (09:11)
[2019-06-20] MEDS ORDERED: ONDANSETRON 4 MG/2 ML VIAL IVP PRN (09:11)
[2019-06-20] MEDS ORDERED: SIMETHICONE 80 MG CHEWABLE PO PRN (09:11)
[2019-06-20] MEDS ORDERED: ALBUTEROL NEBULIZED 2.5 MG/3 ML INHALATION PRN (09:11)
[2019-06-20] MEDS: SENNOSIDES-DOCUSATE SODIUM 1 EACH TAB PO SCH ×2 (10:44→20:33)
[2019-06-20] MEDS: lamoTRIgine 100 MG TAB PO SCH ×2 (10:44→20:33)
[2019-06-20] MEDS: DULoxetine HCL 60 MG CAPSULE.DR PO SCH (10:45)
[2019-06-20] MEDS: LACTATED RINGERS 1,000 ML IV SCH ×2 (10:45→20:32)
[2019-06-20] MEDS: diphenhydrAMINE 50 MG/ML 1 ML VIAL IVP PRN ×2 (11:00→16:59)
[2019-06-20] MEDS: HYDROmorphone PCA 10 MG/50 ML BAG IV PRN ×2 (12:02→21:17)
[2019-06-20] MEDS: IBUPROFEN 600 MG TAB PO PRN ×2 (15:00→20:31)
[2019-06-20] MEDS: QUEtiapine 50 MG TAB PO SCH (20:30)
[2019-06-21] MEDS: IBUPROFEN 600 MG TAB PO PRN ×3 (02:58→19:11)
[2019-06-21] MEDS: LACTATED RINGERS 1,000 ML IV SCH (05:42)
[2019-06-21] MEDS: diphenhydrAMINE 50 MG/ML 1 ML VIAL IVP PRN ×2 (06:24→12:42)
[2019-06-21] MEDS: lamoTRIgine 100 MG TAB PO SCH ×2 (07:44→20:42)
[2019-06-21] MEDS: DULoxetine HCL 60 MG CAPSULE.DR PO SCH (07:44)
[2019-06-21] MEDS: SENNOSIDES-DOCUSATE SODIUM 1 EACH TAB PO SCH ×2 (07:44→20:43)
[2019-06-21] MEDS: HYDROmorphone PCA 10 MG/50 ML BAG IV PRN (08:03)
[2019-06-21 08:48] LABS: Basophils % (A) 0 %; Eosinophils # (A) 0.1 k/uL (0-0.7); Eosinophils % (A) 1 %; HCT 35.3 % (34.0-46.0); HGB 11.3 gm/dL (11.4-16.0); Lymphocytes # (A) 2.8 k/uL (1.0-4.8); Lymphocytes % (A) 31 %; MCH 28.3 pg (25.0-35.0); MCV 88.3 fL (80.0-100.0); Mean Platelet Volume 7.2; Monocytes # (A) 0.6 k/uL (0-1.0); Monocytes % (A) 6 %; Neutrophils # (A) 5.4 k/uL (1.3-7.7); Neutrophils % (A) 60 %; Platelet Count 266 k/uL (150-450); RDW 13.8 % (11.5-15.5); WBC 9.1 k/uL (3.8-10.6)
--- NOTE | 2019-06-21 09:18 | P.PN ---
Subjective Progress Note Date: 06/21/19 Principal diagnosis: status post exploratory laparotomy left oophorectomy postoperative day #1 Patient is complaining of soreness today. She is ambulating. She is passing flatus and bowel movements. The PEDIATRIC PATHOLOGIST pump has been helping her pain. She denies any nausea or vomiting. Objective - Vital Signs Vital signs: Vital Signs Temp 98.2 F 06/21/19 04:39 Pulse 89 06/21/19 04:39 Resp 18 06/21/19 04:39 BP 122/78 06/21/19 04:39 Pulse Ox 98 06/21/19 04:39 Intake & Output 06/20/19 06/21/19 06/21/19 18:59 06:59 18:59 Intake Total 1780 830 Output Total 525 Balance 1255 830 Intake: IV 1300 Oral 480 830 Output: Urine 500 Estimated Blood Loss 25 Other: Voiding Method Toilet # Voids 1 - Constitutional General appearance: Present: mild distress - Gastrointestinal Gastrointestinal Comment(s): incision is clean dry and intact with herman in place. General gastrointestinal: Present: normal bowel sounds - Labs CBC & Chem 7: 06/21/19 08:16 Labs: Abnormal Lab Results - Last 24 Hours (Table) 06/21/19 Range/Units 08:16 Hgb 11.3 L (11.4-16.0) gm/dL Assessment and Plan Assessment: status post exploratory laparotomy with left oophorectomy postoperative day #1 (1) Complex cyst of left ovary Current Visit: No Status: Acute Code(s): N83.292 - OTHER OVARIAN CYST, LEFT SIDE SNOMED Code(s): 29090473286971177 Plan: Will switch to oral pain medications today. Encouraged ambulation. Advance diet as tolerated. May shower.
[2019-06-21] MEDS: HYDROcodone/APAP 7.5-325MG 1 EACH TAB PO PRN ×2 (10:52→17:42)
[2019-06-21] MEDS ORDERED: diphenhydrAMINE 25 MG CAP PO PRN (13:09)
[2019-06-21] MEDS: QUEtiapine 50 MG TAB PO SCH (20:43)
[2019-06-22 04:42] VITALS: RESP 16
[2019-06-22] MEDS: HYDROcodone/APAP 7.5-325MG 1 EACH TAB PO PRN ×2 (05:26→13:28)
[2019-06-22] MEDS: lamoTRIgine 100 MG TAB PO SCH (07:56)
[2019-06-22] MEDS: DULoxetine HCL 60 MG CAPSULE.DR PO SCH (07:56)
[2019-06-22] MEDS: IBUPROFEN 600 MG TAB PO PRN (07:56)
[2019-06-22] MEDS: SENNOSIDES-DOCUSATE SODIUM 1 EACH TAB PO SCH (07:58)
[2019-06-22 12:00] VITALS: BP 127/83; PULSE 83; TEMP 98.5
--- NOTE | 2019-06-22 12:35 | P.DS ---
Providers Date of admission: 06/20/19 05:47 Expected date of discharge: 06/22/19 Attending physician: Carisa Milner Primary care physician: Black Mcconnell - Discharge Diagnosis(es) (1) Complex cyst of left ovary Current Visit: No Status: Acute Hospital Course: This is a 33-year-old female who underwent an exploratory laparotomy with left oophorectomy on 06/20/2019. Ultrasound and computed tomography scan had shown a large 8 cm complex cyst on the left ovary however at the time of surgery a normal sized left ovary was noted but it was very adhesed to bowel in the pelvic region. Postoperatively she has done well but has been sore. Her pain medications do help her pain. She has been passing flatus and bowel movement. She denies any nausea or vomiting. She has been ambulating without difficulty. She would like to go home today. I'll signs are stable. Abdomen is soft with positive bowel sounds 4. Incision is clean dry and intact with herman in place. Extremities show negative Homans. Impression is status post exploratory laparotomy with left oophorectomy postoperative day #2. Plan is to discharge home today. She will be given a prescription for [place] and ibuprofen. She will sign the start taking opioid form and has been counseled regarding opioid use. She is advised to follow up in the office in 1 week. Freeman will be removed and Steri-Strips placed prior to discharge. She is advised to call the office if she has any further concerns or questions prior to her appointment time. Procedures: Exploratory laparotomy with left oophorectomy on 06/20/2019 Patient Condition at Discharge: Stable Plan - Discharge Summary Discharge Rx Participant: No New Discharge Prescriptions: New Ibuprofen [Motrin] 600 mg PO Q6HR PRN #60 tab PRN Reason: Mild Discomfort HYDROcodone/APAP 7.5-325MG [[place] 7.5-325] 1 each PO Q6H PRN #20 tab PRN Reason: Moderate To Severe Pain Continue QUEtiapine [SEROquel] 50 mg PO HS 30 Days #30 tab lamoTRIgine [LaMICtal] 200 mg PO QAM DULoxetine HCL [Cymbalta] 60 mg PO QAM Albuterol Inhaler [Ventolin Hfa Inhaler] 2 puff INHALATION RT-Q6H PRN PRN Reason: Shortness Of Breath lamoTRIgine [LaMICtal] 100 mg PO HS HYDROcodone/APAP 5-325MG [[place] 5-325] 1 tab PO Q6HR PRN PRN Reason: Pain Discontinued Ibuprofen [Motrin] 800 mg PO Q8H Discharge Medication List QUEtiapine [SEROquel] 50 mg PO HS 30 Days #30 tab 05/04/18 [Rx] DULoxetine HCL [Cymbalta] 60 mg PO QAM 05/10/19 [History] lamoTRIgine [LaMICtal] 200 mg PO QAM 05/10/19 [History] Albuterol Inhaler [Ventolin Hfa Inhaler] 2 puff INHALATION RT-Q6H PRN 05/20/19 [History] lamoTRIgine [LaMICtal] 100 mg PO HS 06/10/19 [History] HYDROcodone/APAP 5-325MG [[place] 5-325] 1 tab PO Q6HR PRN 06/20/19 [History] HYDROcodone/APAP 7.5-325MG [[place] 7.5-325] 1 each PO Q6H PRN #20 tab 06/22/19 [Rx] Ibuprofen [Motrin] 600 mg PO Q6HR PRN #60 tab 06/22/19 [Rx] Follow up Appointment(s)/Referral(s): Carisa Milner DO [Doctor of Osteopathic Medicine] - 1 Week Activity/Diet/Wound Care/Special Instructions: Activity as tolerated. No heavy lifting. May shower, but no tub baths for 1 week. Diet as tolerated. No intercourse. Discharge Disposition: HOME SELF-CARE
== END 2019-06-22 14:20 | disposition home or self-care (01) | DRG 742 ==
LOC: 2ORMAIN 05:47 → 4MS4W 08:51 → 3NMEDONC 14:38
PROVIDERS: ADMIT Obstetrics & Gynecology; ATTEND Obstetrics & Gynecology
PROC: 0UT10ZZ Resection of Left Ovary, Open Approach (ICD-10-PCS; principal; 2019-06-20 07:30)
DX: N83.292 Other ovarian cyst, left side (principal); Z68.42 Body mass index [BMI] 45.0-49.9, adult; E66.01 Morbid (severe) obesity due to excess calories; N73.6 Female pelvic peritoneal adhesions (postinfective); J45.909 Unspecified asthma, uncomplicated; I10 Essential (primary) hypertension; H40.9 Unspecified glaucoma; G47.30 Sleep apnea, unspecified; F41.9 Anxiety disorder, unspecified; F17.200 Nicotine dependence, unspecified, uncomplicated; F31.9 Bipolar disorder, unspecified; Z79.899 Other long term (current) drug therapy; Z98.891 History of uterine scar from previous surgery; Z98.51 Tubal ligation status; Z90.710 Acquired absence of both cervix and uterus; Z90.49 Acquired absence of other specified parts of digestive tract; Z88.1 Allergy status to other antibiotic agents; Z88.0 Allergy status to penicillin; Z88.2 Allergy status to sulfonamides; Z88.8 Allergy status to other drugs, medicaments and biological substances; Z82.49 Family history of ischemic heart disease and other diseases of the circulatory system; Z83.3 Family history of diabetes mellitus; Z83.79 Family history of other diseases of the digestive system; Z83.49 Family history of other endocrine, nutritional and metabolic diseases
CPT/HCPCS: 85025; 86850; 86900; 86901; 88305

== ENCOUNTER 2019-07-01 10:13 | Emergency (ER) | payer BC, OTHER ==
[2019-07-01 10:22] VITALS: TEMP 99.2
--- NOTE | 2019-07-01 10:46 | ED ---
General Adult HPI - General Chief complaint: Recheck/Abnormal Lab/Rx Stated complaint: post surg abd pain Time Seen by Provider: 07/01/19 10:24 Source: patient Mode of arrival: ambulatory Limitations: no limitations - History of Present Illness Initial comments: Patient is a 33-year-old female presenting to the emergency Department with complaints of lower abdominal pressure 1 week. Patient had a left ovarian cyst removed on 06/20/[address] Meza. Patient states for the last week, her appetite has decreased, she's been nauseous, and having lots of lower abdominal pressure/ discomfort. She also feels like she cannot completely empty her bladder. Patient states she had a follow-up with Dr. Meza on and they recommended her to decrease her ibuprofen as it could be causing her nausea. Patient states the discomfort is just been increasing and she decided to be seen. Patient also admits to 2 days of watery diarrhea. Patient states she did not take antibiotics. Patient denies fever, chills, vomiting. Patient has no other complaints at this time. - Related Data Home Medications Medication Instructions Recorded Confirmed DULoxetine HCL [Cymbalta] 60 mg PO QAM 05/10/19 07/01/19 lamoTRIgine [LaMICtal] 200 mg PO QAM 05/10/19 07/01/19 Albuterol Inhaler [Ventolin Hfa 2 puff INHALATION RT-Q6H PRN 05/20/19 07/01/19 Inhaler] HYDROcodone/APAP 7.5-325MG [[place] 1 tab PO Q6H PRN 07/01/19 07/01/19 7.5-325] Previous Rx's Medication Instructions Recorded QUEtiapine [SEROquel] 50 mg PO HS 30 Days #30 tab 05/04/18 Ibuprofen [Motrin] 600 mg PO Q6HR PRN #60 tab 06/22/19 Ondansetron Odt [Zofran Odt] 4 mg PO Q8HR PRN #10 tab 07/01/19 Allergies Allergy/AdvReac Type Severity Reaction Status Date / Time clarithromycin [From Biaxin] Allergy Rash/Hives Verified 07/01/19 10:39 cortisone Allergy Swelling Verified 07/01/19 10:39 levofloxacin [From Levaquin] Allergy Rash/Hives Verified 08/12/19 10:39 Sulfa (Sulfonamide Allergy Anaphylaxis Verified 07/01/19 10:39 Antibiotics) terfenadine [From Seldane] Allergy Rash/Hives Verified 07/01/19 10:39 Review of Systems ROS Statement: Those systems with pertinent positive or pertinent negative responses have been documented in the HPI. ROS Other: All systems not noted in ROS Statement are negative. Past Medical History Past Medical History: Asthma, Hypertension Additional Past Medical History / Comment(s): glaucoma, small prolactinoma History of Any Multi-Drug Resistant Organisms: None Reported Past Surgical History: Adenoidectomy, Appendectomy, Section, Ear Surgery, Hysterectomy, Orthopedic Surgery, Tonsillectomy, Tubal Ligation, Uterine Ablation Additional Past Surgical History / Comment(s): left wrist surgery, several fa cial reconstructive surg. from dog bite as child, multiple tubes in ears, laser eye surgery, lysis of adhesions and left oopherectomy. [facility] 12/23/2016 Past Anesthesia/Blood Transfusion Reactions: Previous Problems w/ Anesthesia, Family History of Problems w/ Anesthesia, Motion Sickness, Postoperative Nausea & Vomiting (PONV) Additional Past Anesthesia/Blood Transfusion Reaction / Comment(s): very slow to wake up from anesthesia,both parents hard to wake up Past Psychological History: Anxiety Smoking Status: Current some day smoker Past Alcohol Use History: Occasional Past Drug Use History: None Reported, Marijuana - Past Family History Mother Family Medical History: AFIB, Diabetes Mellitus, Hypertension, Liver Disease, Thyroid Disorder Father Family Medical History: Diabetes Mellitus, Hypertension, Myocardial Infarction ([place]), Thyroid Disorder General Exam - General Exam Comments Initial Comments: GENERAL: Well-appearing, well-nourished and in no acute distress. HEAD: Atraumatic, normocephalic. EYES: Pupils equal round and reactive to light, extraocular movements intact, sclera anicteric, conjunctiva are normal. ENT: TMs normal, nares patent, oropharynx clear without exudates. Moist mucous membranes. NECK: Normal range of motion, supple without lymphadenopathy or JVD. LUNGS: Breath sounds clear to auscultation bilaterally and equal. No wheezes rales or rhonchi. HEART: Regular rate and rhythm without murmurs, rubs or gallops. ABDOMEN: Tenderness in the lower abdominal region, left greater than right. Soft, normoactive bowel sounds. No guarding, no rebound. No masses appreciated. : Deferred EXTREMITIES: Normal range of motion, no pitting or edema. No clubbing or cyanosis. NEUROLOGICAL: Cranial nerves II through XII grossly intact. Normal speech, normal gait. PSYCH: Normal mood, normal affect. SKIN: Warm, Dry, normal turgor, no rashes or lesions noted. Incision to the suprapubic area shows no signs of infection. Wound is healing well. Limitations: no limitations Course Vital Signs 07/01/19 07/01/19 07/01/19 10:18 11:36 13:38 Temperature 99.2 F Pulse Rate 103 H 86 93 Respiratory 18 20 18 Rate Blood Pressure 135/98 156/89 133/86 O2 Sat by Pulse 97 98 94 L Oximetry 07/01/19 14:11 Temperature 99.2 F Pulse Rate 93 Respiratory 18 Rate Blood Pressure 133/86 O2 Sat by Pulse 94 L Oximetry Medical Decision Making - Medical Decision Making Patient is a 33-year-old female presenting with lower abdominal pressure and pain 4 days. Patient had left ovary removed by Dr. Meza on 06/20/2019. Upon arrival, vital signs stable, afebrile. On exam patient has mild tenderness to lower abdominal region. Incision looks clean and dry, no signs of infection. CBC, CMP are within normal limits. Lactic acid is 1.1. UA shows no signs of infection. Patient was given fluids, Zofran, Toradol and reports improvement in discomfort. Discussed with patient that this is most likely related to her surgery. There is no concern for infection at this time. Patient will follow up with Dr. Meza. Patient is stable for discharge and she agrees with this plan of care. Return parameters were discussed with patient she verbalized understanding. Case discussed with Dr. Pritchard. - Lab Data Result diagrams: 07/01/19 11:30 07/01/19 11:30 Lab Results 07/01/19 07/01/19 07/01/19 Range/Units 11:30 11:30 11:30 WBC 9.6 (3.8-10.6) k/uL RBC 4.47 (3.80-5.40) m/uL Hgb 13.2 (11.4-16.0) gm/dL Hct 39.0 (34.0-46.0) % MCV 87.3 (80.0-100.0) fL MCH 29.6 (25.0-35.0) pg MCHC 33.9 (31.0-37.0) g/dL RDW 15.9 H (11.5-15.5) % Plt Count 332 (150-450) k/uL Neutrophils % 75 % Lymphocytes % 18 % Monocytes % 4 % Eosinophils % 2 % Basophils % 1 % Neutrophils # 7.2 (1.3-7.7) k/uL Lymphocytes # 1.7 (1.0-4.8) k/uL Monocytes # 0.4 (0-1.0) k/uL Eosinophils # 0.1 (0-0.7) k/uL Basophils # 0.1 (0-0.2) k/uL Sodium 141 (137-145) mmol/L Potassium 4.3 (3.5-5.1) mmol/L Chloride 104 (98-107) mmol/L Carbon Dioxide 25 (22-30) mmol/L Anion Gap 12 mmol/L BUN 11 (7-17) mg/dL Creatinine 0.69 (0.52-1.04) mg/dL Est GFR (CKD-EPI)AfAm >90 (>60 ml/min/1.73 sqM) Est GFR (CKD-EPI)NonAf >90 (>60 ml/min/1.73 sqM) Glucose 115 H (74-99) mg/dL Plasma Lactic Acid Jose 1.1 (0.7-2.0) mmol/L Calcium 9.8 (8.4-10.2) mg/dL Total Bilirubin 0.5 (0.2-1.3) mg/dL AST 26 (14-36) U/L ALT 38 (9-52) U/L Alkaline Phosphatase 78 (38-126) U/L Total Protein 7.6 (6.3-8.2) g/dL Albumin 4.6 (3.5-5.0) g/dL Urine Color Urine Appearance (Clear) Urine pH (5.0-8.0) Ur Specific Gray (1.001-1.035) Urine Protein (Negative) Urine Glucose (UA) (Negative) Urine Ketones (Negative) Urine Blood (Negative) Urine Nitrite (Negative) Urine Bilirubin (Negative) Urine Urobilinogen (<2.0) mg/dL Ur Leukocyte Esterase (Negative) 08/12/19 Range/Units 11:30 WBC (3.8-10.6) k/uL RBC (3.80-5.40) m/uL Hgb (11.4-16.0) gm/dL Hct (34.0-46.0) % MCV (80.0-100.0) fL MCH (25.0-35.0) pg MCHC (31.0-37.0) g/dL RDW (11.5-15.5) % Plt Count (150-450) k/uL Neutrophils % % Lymphocytes % % Monocytes % % Eosinophils % % Basophils % % Neutrophils # (1.3-7.7) k/uL Lymphocytes # (1.0-4.8) k/uL Monocytes # (0-1.0) k/uL Eosinophils # (0-0.7) k/uL Basophils # (0-0.2) k/uL Sodium (137-145) mmol/L Potassium (3.5-5.1) mmol/L Chloride (98-107) mmol/L Carbon Dioxide (22-30) mmol/L Anion Gap mmol/L BUN (7-17) mg/dL Creatinine (0.52-1.04) mg/dL Est GFR (CKD-EPI)AfAm (>60 ml/min/1.73 sqM) Est GFR (CKD-EPI)NonAf (>60 ml/min/1.73 sqM) Glucose (74-99) mg/dL Plasma Lactic Acid Jose (0.7-2.0) mmol/L Calcium (8.4-10.2) mg/dL Total Bilirubin (0.2-1.3) mg/dL AST (14-36) U/L ALT (9-52) U/L Alkaline Phosphatase (38-126) U/L Total Protein (6.3-8.2) g/dL Albumin (3.5-5.0) g/dL Urine Color Yellow Urine Appearance Clear (Clear) Urine pH 7.5 (5.0-8.0) Ur Specific Gray 1.022 (1.001-1.035) Urine Protein Trace H (Negative) Urine Glucose (UA) Negative (Negative) Urine Ketones Negative (Negative) Urine Blood Negative (Negative) Urine Nitrite Negative (Negative) Urine Bilirubin Negative (Negative) Urine Urobilinogen <2.0 (<2.0) mg/dL Ur Leukocyte Esterase Negative (Negative) Disposition Clinical Impression: Abdominal pain Disposition: HOME SELF-CARE Condition: Stable Instructions (If sedation given, give patient instructions): Abdominal Pain (ED) Additional Instructions: Please return to the Emergency Department if symptoms worsen or any other concerns. Follow-up with Dr. Meza as necessary. Prescriptions: Ondansetron Odt [Zofran Odt] 4 mg PO Q8HR PRN #10 tab PRN Reason: Nausea Is patient prescribed a controlled substance at d/c from ED?: No Referrals: Black Mcconnell MD [Primary Care Provider] - 1-2 days
[2019-07-01] MEDS ORDERED: ONDANSETRON 4 MG/2 ML VIAL IVP STA (10:47)
[2019-07-01] MEDS ORDERED: KETOROLAC 30 MG/ML 1 ML VIAL IVP STA (10:47)
[2019-07-01] MEDS ORDERED: SODIUM CHLORIDE 0.9% 1,000 ML IV STA (10:47)
[2019-07-01 11:53] LABS: Basophils # (A) 0.1 k/uL (0-0.2); Basophils % (A) 1 %; Eosinophils # (A) 0.1 k/uL (0-0.7); Eosinophils % (A) 2 %; HGB 13.2 gm/dL (11.4-16.0); Lymphocytes # (A) 1.7 k/uL (1.0-4.8); Lymphocytes % (A) 18 %; MCH 29.6 pg (25.0-35.0); MCHC 33.9 g/dL (31.0-37.0); MCV 87.3 fL (80.0-100.0); Mean Platelet Volume 7.2; Monocytes # (A) 0.4 k/uL (0-1.0); Monocytes % (A) 4 %; Neutrophils # (A) 7.2 k/uL (1.3-7.7); Neutrophils % (A) 75 %; Platelet Count 332 k/uL (150-450); RBC 4.47 m/uL (3.80-5.40); RDW 15.9 % (11.5-15.5); WBC 9.6 k/uL (3.8-10.6)
[2019-07-01 11:57] LABS: ALT 38 U/L (9-52); AST 26 U/L (14-36); African American GFR (CKD) >90 (>60 ml/min/1.73 sqM); Albumin 4.6 g/dL (3.5-5.0); Alkaline Phosphatase 78 U/L (38-126); Anion Gap 12 mmol/L; Blood Urea Nitrogen 11 mg/dL (7-17); Calcium 9.8 mg/dL (8.4-10.2); Carbon Dioxide 25 mmol/L (22-30); Chloride 104 mmol/L (98-107); Glucose 115 mg/dL (74-99); Non-African American GFR(CKD) >90 (>60 ml/min/1.73 sqM); Potassium 4.3 mmol/L (3.5-5.1); Sodium 141 mmol/L (137-145); Total Bilirubin 0.5 mg/dL (0.2-1.3); Total Protein 7.6 g/dL (6.3-8.2)
[2019-07-01 11:59] LABS: Appearance,Urine Clear (Clear); Bilirubin,Urine Negative (Negative); Blood,Urine Negative (Negative); Color,Urine Yellow; Glucose,Urine (UA) Negative (Negative); Ketones,Urine Negative (Negative); Leukocyte Esterase,Urine Negative (Negative); Nitrite,Urine Negative (Negative); PH, Urine 7.5 (5.0-8.0); Protein,Urine Trace (Negative); Specific Gravity,Urine 1.022 (1.001-1.035); Urobilinogen,Urine <2.0 mg/dL (<2.0)
[2019-07-01 13:39] VITALS: BP 133/86; PULSE 93; RESP 18
== END 2019-07-01 14:11 | disposition home or self-care (01) ==
LOC: EC 10:13
DX: R10.32 Left lower quadrant pain (principal); G89.18 Other acute postprocedural pain; R11.0 Nausea; R19.7 Diarrhea, unspecified; R63.0 Anorexia; J45.909 Unspecified asthma, uncomplicated; F41.9 Anxiety disorder, unspecified; F17.200 Nicotine dependence, unspecified, uncomplicated; Z90.49 Acquired absence of other specified parts of digestive tract; Z90.710 Acquired absence of both cervix and uterus; Z98.51 Tubal ligation status; Z98.890 Other specified postprocedural states; Z90.721 Acquired absence of ovaries, unilateral; Z79.899 Other long term (current) drug therapy; Z88.1 Allergy status to other antibiotic agents; Z88.8 Allergy status to other drugs, medicaments and biological substances; Z88.2 Allergy status to sulfonamides
CPT/HCPCS: 36415; 80053; 83605; 85025; 81003; 87040; 99283; 96374; 96375; 96361 ×2; J2405; J1885

== ENCOUNTER → 2019-08-19 | Outpatient (CLI) | payer BC, OTHER ==
--- NOTE | 2019-08-19 16:01 | CT ---
EXAMINATION TYPE: CT abdomen pelvis w con DATE OF EXAM: 08/19/2019 COMPARISON: 05/10/2019 HISTORY: 34-year-old female not able to eat solid foods, liquids make her vomit. Abdominal and pelvic pain. TECHNIQUE: Contiguous axial scanning of the abdomen and pelvis following administration of 100 ml Iso adonis 300 IV contrast. Delayed images through the kidneys and coronal/sagittal reconstructions perform ed. CT DLP: 2713.3 mGycm Automated exposure control for dose reduction was used. FINDINGS: Heart normal size without pericardial effusion. Lung bases clear without pleural effusion. Liver enlarged measuring 25.9 cm. Diffuse low-attenuation without focal lesion. Portal venous system is patent. No biliary ductal dilatation. Gallbladder, adrenal glands, kidneys, and pancreas appear within normal limits. Spleen upper limits o f normal size at 13.7 cm. A few borderline sized left mesenteric lymph nodes measure up to 7 mm and are probably reactive/post inflammatory. No dilated small bowel, free fluid, or free air. Oral contrast progressed faintly throughout the entire colon. No significant stool burden. No pericol onic inflammatory change. Bladder is urine distended. Uterus surgically absent. Right ovary is visualized. Left not clearly see n. No abnormal fluid collection in the pelvis or pelvic lymphadenopathy. Bones: No osseous destructive process. IMPRESSION: 1. Marked hepatomegaly (25.9 cm) with severe hepatic steatosis. Correlate with LFTs, lipid profile, a nd patient risk factors. 2. Otherwise, no acute inflammatory process identified in the abdomen or pelvis to explain the patien t's symptoms.
== END | disposition home or self-care (01) ==
LOC: RADCTMAIN 09:35
PROVIDERS: ATTEND Obstetrics & Gynecology
DX: K76.0 Fatty (change of) liver, not elsewhere classified (principal); R19.7 Diarrhea, unspecified
CPT/HCPCS: 74177; Q9967 ×2

== ENCOUNTER → 2020-12-14 | Outpatient (CLI) | payer BC, OTHER ==
[2020-12-14 11:50] LABS: HCT 39.1 % (34.0-46.0); HGB 13.1 gm/dL (11.4-16.0); MCH 29.5 pg (25.0-35.0); MCHC 33.5 g/dL (31.0-37.0); Platelet Count 257 k/uL (150-450); RBC 4.44 m/uL (3.80-5.40); RDW 14.2 % (11.5-15.5); WBC 8.2 k/uL (3.8-10.6)
[2020-12-14 21:40] LABS: African American GFR (CKD) 131.9 (60.0-200.0); Albumin 4.8 g/dL (3.80-4.90); Anion Gap 13.6 mmol/L (4.00-12.00); BUN/Creat Ratio 12.86 Ratio (12.00-20.00); Calcium 9.6 mg/dL (8.7-10.3); Carbon Dioxide 21.4 mmol/L (21.6-31.8); Globulin 1.6 g/dL (1.6-3.3); Non-African American GFR(CKD) 113.8 (60.0-200.0); Potassium 4.4 mmol/L (3.5-5.5); Total Bilirubin 0.3 mg/dL (0.2-1.2); Total Protein 6.4 g/dL (6.2-8.2)
== END | disposition home or self-care (01) ==
LOC: LABWHC1 10:16
PROVIDERS: ATTEND Internal Medicine Gastroenterology
DX: K76.0 Fatty (change of) liver, not elsewhere classified (principal)
CPT/HCPCS: 36415; 80053; 85027

== ENCOUNTER → 2020-12-18 | Outpatient (CLI) | payer BC, OTHER | END | disposition home or self-care (01) | LOC: LABWHC1 12:53 | PROVIDERS: ATTEND Internal Medicine Gastroenterology | DX: K76.0 Fatty (change of) liver, not elsewhere classified (principal) | CPT/HCPCS: 36415 ==

== ENCOUNTER 2021-12-29 16:14 | Emergency (ER) | payer BC, OTHER ==
--- NOTE | 2021-12-29 18:37 | XR ---
EXAMINATION TYPE: XR chest 2V DATE OF EXAM: 12/29/2021 6:23 PM COMPARISON:Multiple radiographs, with the most recent on 09/29/2012 TECHNIQUE: Frontal and lateral views of the chest. CLINICAL INDICATION:Female, 36 years old with history of Chest Pain; FINDINGS: Lungs/Pleura: There is no evidence of pleural effusion, focal consolidation, or pneumothorax. Pulmonary vascularity: Unremarkable. Heart/mediastinum: Cardiomediastinal silhouette is unremarkable. Musculoskeletal: No acute osseous pathology. IMPRESSION: No acute cardiopulmonary disease/process.
[2021-12-29 19:44] LABS: Basophils % (A) 0 %; Eosinophils # (A) 0.2 k/uL (0-0.7); Eosinophils % (A) 2 %; HCT 39.6 % (34.0-46.0); HGB 13.7 gm/dL (11.4-16.0); Lymphocytes # (A) 3.7 k/uL (1.0-4.8); Lymphocytes % (A) 33 %; MCH 30.5 pg (25.0-35.0); MCHC 34.6 g/dL (31.0-37.0); MCV 88.3 fL (80.0-100.0); Mean Platelet Volume 7.8; Monocytes # (A) 0.5 k/uL (0-1.0); Monocytes % (A) 5 %; Neutrophils # (A) 6.5 k/uL (1.3-7.7); Neutrophils % (A) 59 %; Platelet Count 306 k/uL (150-450); RBC 4.49 m/uL (3.80-5.40); RDW 14.8 % (11.5-15.5)
[2021-12-29 19:59] LABS: INR 0.9 (<1.2); Prothrombin Time 10.2 sec (9.0-12.0)
[2021-12-29 20:07] LABS: ALT 39 U/L (4-34); AST 38 U/L (14-36); African American GFR (CKD) >90 (>60 ml/min/1.73 sqM); Albumin 4.6 g/dL (3.5-5.0); Alkaline Phosphatase 138 U/L (38-126); Anion Gap 12 mmol/L; Blood Urea Nitrogen 10 mg/dL (7-17); Calcium 9.6 mg/dL (8.4-10.2); Carbon Dioxide 24 mmol/L (22-30); Chloride 102 mmol/L (98-107); Glucose 124 mg/dL (74-99); Magnesium 1.9 mg/dL (1.6-2.3); Non-African American GFR(CKD) >90 (>60 ml/min/1.73 sqM); Potassium 3.9 mmol/L (3.5-5.1); Sodium 138 mmol/L (137-145); Total Bilirubin 0.5 mg/dL (0.2-1.3); Total Protein 7.6 g/dL (6.3-8.2)
--- NOTE | 2021-12-29 22:05 | ED ---
Chest Pain HPI - General Chief Complaint: Chest Pain Stated Complaint: Chest pain Time Seen by Provider: 12/29/21 19:27 Source: patient Mode of arrival: ambulatory Limitations: no limitations - History of Present Illness Initial Comments: 36-year-old female presents emergency room with reported chest pain. States that it started last night and has been going on consistently. She describes it as a sharp shooting pain that is generalized located across the anterior portion of her whole chest. She has some mild associated shortness of breath. She no braxton that her heart watch was reading a heart rate anywhere between 110 and 140. She went to her primary care doctor today. Due to her symptoms he recommended that she come into the emergency room for further evaluation. Denies personal history of cardiac or pulmonary disease. She has had some lower leg swelling. No history of DVT or PE. No concern for . Patient has never had previous cardiac workup. No other alleviating, precipitating or modifying factors - Related Data Home Medications Medication Instructions Recorded Confirmed lamoTRIgine [LaMICtal] 200 mg PO BID 05/10/19 12/29/21 Cholecalciferol (Vitamin D3) 125 mcg PO DAILY 12/29/21 12/29/21 [Vitamin D3 (125 MCG = 5,000 IU)] Clobetasol 0.05% Solution 1 applic TOPICAL BID 12/29/21 12/29/21 Clobetasol Propionate [Temovate 1 applic TOPICAL BID 12/29/21 12/29/21 0.05% Oint] Multivitamin [Multivitamins Adult 2 tab PO DAILY 12/29/21 12/29/21 Gummies] OLANZapine [ZyPREXA] 2.5 mg PO DAILY 12/29/21 12/29/21 OLANZapine [ZyPREXA] 10 mg PO HS 12/29/21 12/29/21 SUMAtriptan SUCCINATE [Imitrex] 100 mg PO BID PRN 12/29/21 12/29/21 Temazepam [Restoril] 30 mg PO HS PRN 12/29/21 12/29/21 Venlafaxine HCl [Effexor XR] 150 mg PO DAILY 12/29/21 12/29/21 Allergies Allergy/AdvReac Type Severity Reaction Status Date / Time clarithromycin [From Biaxin] Allergy Rash/Hives Verified 12/29/21 21:09 cortisone Allergy Rash/Hives Verified 12/29/21 21:09 levofloxacin [From Levaquin] Allergy Rash/Hives Verified 12/29/21 21:09 Penicillins Allergy Unknown Verified 12/29/21 21:09 Sulfa (Sulfonamide Allergy Anaphylaxis Verified 12/29/21 21:09 Antibiotics) terfenadine [From Seldane] Allergy Rash/Hives Verified 12/29/21 21:09 Review of Systems ROS Statement: Those systems with pertinent positive or pertinent negative responses have been documented in the HPI. ROS Other: All systems not noted in ROS Statement are negative. EKG Findings - EKG Comments: EKG Findings:: EKG demonstrates sinus tachycardia with a ventricular rate of 110. [place] interval 161. QRS 91. Qtc 409. No acute ST segment elevations or depressions concerning for ischemic changes Past Medical History Past Medical History: Asthma, Hypertension Additional Past Medical History / Comment(s): glaucoma, small prolactinoma History of Any Multi-Drug Resistant Organisms: None Reported Past Surgical History: Adenoidectomy, Appendectomy, Section, Ear Surgery, Hysterectomy, Orthopedic Surgery, Tonsillectomy, Tubal Ligation, Uterine Ablation Additional Past Surgical History / Comment(s): left wrist surgery, several facial reconstructive surg. from dog bite as child, multiple tubes in ears, laser eye surgery, lysis of adhesions and left oopherectomy. [facility] 12/23/2016 Past Anesthesia/Blood Transfusion Reactions: Previous Problems w/ Anesthesia, Family History of Problems w/ Anesthesia, Motion Sickness, Postoperative Nausea & Vomiting (PONV) Additional Past Anesthesia/Blood Transfusion Reaction / Comment(s): very slow to wake up from anesthesia,both parents hard to wake up Past Psychological History: Anxiety Smoking Status: Never smoker Past Alcohol Use History: Rare Past Drug Use History: Marijuana - Past Family History Mother Family Medical History: AFIB, Diabetes Mellitus, Hypertension, Liver Disease, Thyroid Disorder Father Family Medical History: Diabetes Mellitus, Hypertension, Myocardial Infarction ([place]), Thyroid Disorder General Exam Limitations: no limitations General appearance: alert, in no apparent distress Head exam: Present: atraumatic, normocephalic, normal inspection Eye exam: Present: normal appearance, PERRL, EOMI. Absent: scleral icterus, conjunctival injection, periorbital swelling ENT exam: Present: normal exam, mucous membranes moist Neck exam: Present: normal inspection. Absent: tenderness, meningismus, lymphadenopathy Respiratory exam: Present: normal lung sounds bilaterally. Absent: respiratory distress, wheezes, rales, rhonchi, stridor Cardiovascular Exam: Present: normal rhythm, tachycardia, normal heart sounds. Absent: systolic murmur, diastolic murmur, rubs, gallop, clicks GI/Abdominal exam: Present: soft, normal bowel sounds. Absent: distended, tenderness, guarding, rebound, rigid Extremities exam: Present: normal inspection, full ROM, normal capillary refill. Absent: tenderness, pedal edema, joint swelling, calf tenderness Back exam: Present: normal inspection Neurological exam: Present: alert, oriented X3, CN II-XII intact Psychiatric exam: Present: normal affect, normal mood Skin exam: Present: warm, dry, intact, normal color. Absent: rash Course Vital Signs 12/29/21 12/29/21 12/29/21 18:11 20:26 22:28 Temperature 99.0 F Pulse Rate 110 H 111 H 112 H Respiratory 18 20 20 Rate Blood Pressure 169/98 140/86 166/98 O2 Sat by Pulse 96 98 95 Oximetry 12/29/21 12/29/21 23:02 23:43 Temperature 97 F L Pulse Rate 72 78 Respiratory 16 18 Rate Blood Pressure 140/93 137/87 O2 Sat by Pulse 98 Oximetry Chest Pain MDM - MDM Upon arrival patient is placed in the hallway 20. A thorough history and physical exam is performed. Laboratory studies are conducted and reviewed. Troponin is negative. Covid not detected. She does present with tachycardia, lower extremity swelling and chest pain or shortness of breath she is sent for a CT of her chest which demonstrates no acute PE. Patient is revitalization blood pressure and heart rate have improved. At this time the patient will be discharged home and is to follow-up with her primary care doctor in 2-4 days. Did recommend full cardiac workup to include stress echo. Patient understood. If she has any new or worsening symptoms she should return to the emergency room. Patient discharged home in stable condition Disposition Clinical Impression: Tachycardia, Acute respiratory insufficiency, Chest pain Disposition: HOME SELF-CARE Condition: Stable Instructions (If sedation given, give patient instructions): Chest Pain (ED), Heart Palpitations (ED) Additional Instructions: I recommend that you [facility] with the [facility] for an echo and Holter monitoring. Return to the emergency department for any new or worsening symptoms. P Is patient prescribed a controlled substance at d/c from ED?: No Referrals: Black Mcconnell MD [Primary Care Provider] - 1-2 days [facility] [Provider Group] - 1-2 days Time of Disposition: 23:38
--- NOTE | 2021-12-29 22:39 | CT ---
EXAMINATION TYPE: CT chest angio for PE DATE OF EXAM: 12/29/2021 COMPARISON: None HISTORY: Tachycardia, CP, leg swelling CT DLP: 836.8 mGycm Automated exposure control for dose reduction was used. CONTRAST: Performed with IV Contrast, patient injected with 100 mL of Isovue 370. There are Three-D postprocessed images. The lungs are clear of consolidation. There is no evidence of a pulmonary mass. Heart size is normal. There is no pericardial effusion. There are no hilar masses. There is no mediastinal adenopathy. Tho racic aorta is intact. There is no aneurysm or dissection. There is no evidence of filling defect in the pulmonary arteries. There is diffuse fatty infiltration of the liver. The thoracic spine is intact. There is no compressi on fracture. Sternum is intact. IMPRESSION: No evidence of pulmonary embolism. Normal heart. Advanced fatty infiltration of the liver.
[2021-12-29 23:45] VITALS: BP 137/87; PULSE 78; RESP 18; TEMP 97
== END 2021-12-29 23:45 | disposition home or self-care (01) ==
LOC: EC 16:14
DX: R00.0 Tachycardia, unspecified (principal); R06.89 Other abnormalities of breathing; R07.89 Other chest pain; I10 Essential (primary) hypertension; J45.909 Unspecified asthma, uncomplicated; Z88.1 Allergy status to other antibiotic agents; Z88.2 Allergy status to sulfonamides; Z88.8 Allergy status to other drugs, medicaments and biological substances; Z79.899 Other long term (current) drug therapy; Z20.822 Contact with and (suspected) exposure to COVID-19
CPT/HCPCS: 36415; 93005; 80053; 83735; 84484; 85025; 85610; 85730; 87635; 71046; 71275; 99285; Q9967

== ENCOUNTER → 2022-01-14 | Outpatient (CLI) | payer BC, OTHER ==
[2022-01-14 19:08] LABS: ALT 32 U/L (8-44); AST 36 U/L (13-35); Chol/HDL Ratio 5.52 Ratio; LDL Cholesterol,Calculated 127.8 mg/dL (0.0-131.0)
== END | disposition home or self-care (01) ==
LOC: LABWHC1 11:07
PROVIDERS: ATTEND Internal Medicine Cardiovascular Disease
DX: E78.2 Mixed hyperlipidemia (principal)
CPT/HCPCS: 36415; 80061; 84443; 84450; 84460

== ENCOUNTER → 2022-02-08 | Outpatient (CLI) | payer BC, OTHER ==
[2022-02-08 16:08] VITALS: BP 174/103; TEMP 98.2; BMI 56.5
[2022-02-08 16:12] VITALS: PULSE 102
--- NOTE | 2022-02-08 16:43 | P.HPBAR ---
Bariatric H&P - History & Physicial H&P Date: 02/08/22 History & Physicial: Visit/CC: initial clinic visit Patient initial contact: Initial weight: Initial weight in pounds: Height: 5 ft 5 in Initial BMI: Last weight: Current weight: 154.221 kg Current weight in pounds: 340.00 Current BMI: 56.5 [place] body weight (based on NIH guidelines): 56.699 kg Excess body weight loss: The patient is a 36 year-old F who presents for Bariatric Assessment. 36-year-old female is known to our service from previous laparoscopic appendectomy 10-15 years ago. Patient has been thinking about weight loss surgery for many years. Patient suffers from hypertension, fatty liver, hypercholesterolemia, chronic back pain, knee pain, mild reflux symptoms. BMI currently 56. Her mother had LAP-BAND placement. She is interested in sleeve gastrectomy. Surgical history pertinent for appendectomy, hysterectomy and oophorectomy. Patient sees cardiology for hypertension and has an upcoming stress test and echo pending at this time. She sees GI for her fatty liver periodically. Patient is a nonsmoker. No history of DVT or dysphagia. Review of Systems The patient denies any acute changes in vision or hearing, no dysphagia or odynophagia, no chest pain or shortness of breath, no dysuria or hematuria, no headache, no runny nose, no rectal bleeding or melena, no unexplained weight loss Past Medical History Past Medical History: Asthma, Hypertension Additional Past Medical History / Comment(s): glaucoma, small prolactinoma History of Any Multi-Drug Resistant Organisms: None Reported Past Surgical History: Adenoidectomy, Appendectomy, Section, Ear Surgery, Hysterectomy, Orthopedic Surgery, Tonsillectomy, Tubal Ligation, Uterine Ablation Additional Past Surgical History / Comment(s): left wrist surgery, several facial reconstructive surg. from dog bite as child, multiple tubes in ears, laser eye surgery, lysis of adhesions and left oopherectomy. [facility] 12/23/2016 Past Anesthesia/Blood Transfusion Reactions: Previous Problems w/ Anesthesia, Family History of Problems w/ Anesthesia, Motion Sickness, Postoperative Nausea & Vomiting (PONV) Additional Past Anesthesia/Blood Transfusion Reaction / Comm: very slow to wake up from anesthesia,both parents hard to wake up Past Psychological History: Anxiety Additional Psychological History / Comment(s): panic attacks. borderline personality disorder Smoking Status: Never smoker Past Alcohol Use History: Rare Past Drug Use History: Marijuana - Past Family History Mother Family Medical History: AFIB, Diabetes Mellitus, Hypertension, Liver Disease, Thyroid Disorder Father Family Medical History: Diabetes Mellitus, Hypertension, Myocardial Infarction ([place]), Thyroid Disorder Surgical - Exam Vital Signs Temp Pulse BP 98.2 F 102 H 174/103 02/08/22 16:04 02/08/22 16:04 02/08/22 16:04 Physical exam: General: Well-developed, well-nourished HEENT: Normocephalic, sclerae nonicteric Abdomen: Nontender, nondistended Extremities: No edema Neuro: Alert and oriented Bariatric Assessment & Plan (1) Morbid obesity with BMI of 50.0-59.9, adult Narrative/Plan: 36-year-old female with morbid obesity and associated comorbidities. We discussed at length surgical and nonsurgical options for weight loss. We discussed the risks and benefits of sleeve gastrectomy and gastric bypass. Lucinda alejandra remains interested in sleeve gastrectomy at this time. Await cardiac workup that is already scheduled. We'll obtain records from computer operations manager, psychiatry, and her medical physician. We'll plan preoperative EGD. All questions answered. Status: Acute Bariatric Checklist Checklist: Plan: Checklist: EGD: 1. Hiatal hernia: 2. H. Pylori: HgbA1c: Vitamin D: Smoking: Current some day smoker Primary care physician referral: Dr. Mcconnell Psychiatry clearance: Cardiology clearance: Sleep study: Diet journal: VTE risk score: VTE risk level: Rehab needs at discharge:
== END | disposition home or self-care (01) ==
LOC: BARWHC3 15:19
PROVIDERS: ATTEND Surgery
DX: E66.01 Morbid (severe) obesity due to excess calories (principal); Z68.43 Body mass index [BMI] 50.0-59.9, adult
CPT/HCPCS: 99211

== ENCOUNTER → 2022-02-09 | Outpatient (CLI) | payer BC, OTHER ==
[2022-02-09 13:57] LABS: HCT 41.4 % (37.2-46.3); HGB 13.1 g/dL (12.0-15.0); MCH 28.4 pg (27.0-32.0); MCHC 31.6 g/dL (32.0-37.0); MCV 89.8 fL (80.0-97.0); Mean Platelet Volume 9.7 fL (9.5-12.2); NRBC Per 100 WBC 0 /100 WBCS (0.0-0.0); Platelet Count 298 X 10*3/uL (140-440); RBC 4.61 X 10*6/uL (4.10-5.20); RDW 14.3 % (11.5-14.5); WBC 9.49 X 10*3/uL (4.50-10.00)
[2022-02-09 14:56] LABS: African American GFR (CKD) 132.5 (60.0-200.0); Albumin 4.6 g/dL (3.8-4.9); Albumin/Globulin Ratio 2.06 (1.60-3.17); Anion Gap 16.4 mmol/L (10.00-18.00); BUN/Creat Ratio 10.86 Ratio (12.00-20.00); Blood Urea Nitrogen 7.3 mg/dL (9.0-27.0); Calcium 9.6 mg/dL (8.7-10.3); Carbon Dioxide 21.5 mmol/L (20.0-27.5); Globulin 2.2 g/dL (1.6-3.3); Non-African American GFR(CKD) 114.4 (60.0-200.0); Potassium 4.5 mmol/L (3.5-5.5); Total Bilirubin 0.2 mg/dL (0.30-1.20); Total Protein 6.8 g/dL (6.2-8.2)
== END | disposition home or self-care (01) ==
LOC: LABPAT 09:11
PROVIDERS: ATTEND Surgery
DX: E66.01 Morbid (severe) obesity due to excess calories (principal); K90.89 Other intestinal malabsorption; E55.9 Vitamin D deficiency, unspecified; Z71.51 Drug abuse counseling and surveillance of drug abuser
CPT/HCPCS: 80053; 80323; 82306; 82607; 82746; 83036; 83540; 84425; 85027; 93005

== ENCOUNTER 2022-03-15 10:52 | Day surgery (SDC) | payer BC, OTHER ==
[~2022-03-15 10:52] MED LIST changes: -DEXAMETHASONE SOD PHOSPHATE 10 MG/ML 1 ML VIAL IV ONE; +LIDOCAINE 1% (10MG/ML) FOR IV START INTRADERMA PRN; -LIDOCAINE 1% 20 ML VIAL (10MG/ML) FOR IV START INTRADERMA PRN; -MIDAZOLAM 2 MG/2 ML VIAL IV PRN; -Pre Op ABX Message 1 EACH MISC MISCELLANE ONE; -SCOPOLAMINE 1.5MG/72HR PATCH TRANSDERM ONE
[2022-03-15 11:28] LABS: Glucose,Whole Blood 118 mg/dL (75-99)
[2022-03-15 11:29] VITALS: TEMP 97.2
[2022-03-15] MEDS ORDERED: PROPOFOL 10 MG/ML 20 ML VIAL IV ONE (12:28)
[2022-03-15] MEDS ORDERED: LIDOCAINE 2% INJ 20 MG/ML (2 ML VIAL) ONE (12:28)
--- NOTE | 2022-03-15 12:31 | P.GSHP ---
History of Present Illness H&P Date: 03/15/22 Chief Complaint: GERD 36-year-old female here today for upper endoscopy. Patient is being evaluated for sleeve gastrectomy. Only mild reflux symptoms at times. Recently diagnosed with diabetes and started on medications for that. Patient had recent cardiac workup that was normal. Past Medical History Past Medical History: Asthma, Diabetes Mellitus, Hypertension Additional Past Medical History / Comment(s): "PRE-DIABETIC", A1C IS ELEVATED. Glaucoma. Small prolactinoma History of Any Multi-Drug Resistant Organisms: None Reported Past Surgical History: Adenoidectomy, Appendectomy, Section, Ear Surgery, Hysterectomy, Orthopedic Surgery, Tonsillectomy, Tubal Ligation, Uterine Ablation Additional Past Surgical History / Comment(s): left wrist surgery, several facial reconstructive surg. from dog bite as child, multiple tubes in ears, laser eye surgery, lysis of adhesions and left oopherectomy. [facility] [place] 12/23/2016 Past Anesthesia/Blood Transfusion Reactions: Previous Problems w/ Anesthesia, Family History of Problems w/ Anesthesia, Motion Sickness, Postoperative Nausea & Vomiting (PONV) Additional Past Anesthesia/Blood Transfusion Reaction / Comment(s): very slow to wake up from anesthesia,both parents hard to wake up Past Psychological History: Anxiety Additional Psychological History / Comment(s): panic attacks. borderline personality disorder Smoking Status: Never smoker Past Alcohol Use History: Rare Past Drug Use History: Marijuana - Past Family History Mother Family Medical History: AFIB, Diabetes Mellitus, Hypertension, Liver Disease, Thyroid Disorder Father Family Medical History: Diabetes Mellitus, Hypertension, Myocardial Infarction ([place]), Thyroid Disorder Medications and Allergies Home Medications Medication Instructions Recorded Confirmed Type lamoTRIgine [LaMICtal] 200 mg PO BID 05/10/19 03/15/22 History Cholecalciferol (Vitamin D3) 125 mcg PO DAILY 12/29/21 03/15/22 History [Vitamin D3 (125 MCG = 5,000 IU)] Clobetasol 0.05% Solution 1 applic TOPICAL BID 12/29/21 03/15/22 History Clobetasol Propionate [Temovate 1 applic TOPICAL BID 12/29/21 03/15/22 History 0.05% Oint] Multivitamin [Multivitamins Adult 2 tab PO DAILY 12/29/21 03/15/22 History Gummies] OLANZapine [ZyPREXA] 2.5 mg PO QAM 12/29/21 03/15/22 History OLANZapine [ZyPREXA] 10 mg PO HS 12/29/21 03/15/22 History SUMAtriptan SUCCINATE [Imitrex] 100 mg PO BID PRN 12/29/21 03/15/22 History Venlafaxine HCl [Effexor XR] 150 mg PO QAM 12/29/21 03/15/22 History Metoprolol Tartrate 50 mg PO QAM 02/09/22 03/15/22 History Ergocalciferol [Vitamin D2 (1250 50,000 unit PO SA 02/15/22 03/15/22 History Mcg = 09058 Iu)] Empagliflozin [Jardiance] 25 mg PO QAM 03/10/22 03/15/22 History Allergies Allergy/AdvReac Type Severity Reaction Status Date / Time clarithromycin [From Biaxin] Allergy Rash/Hives Verified 03/15/22 11:07 cortisone Allergy Rash/Hives Verified 03/15/22 11:07 levofloxacin [From Levaquin] Allergy Rash/Hives Verified 03/15/22 11:07 Penicillins Allergy Unknown Verified 03/15/22 11:07 Sulfa (Sulfonamide Allergy Anaphylaxis Verified 03/15/22 11:07 Antibiotics) terfenadine [From Seldane] Allergy Rash/Hives Verified 03/15/22 11:07 Surgical - Exam Vital Signs Temp Pulse BP Pulse Ox 97.2 F L 96 158/95 97 03/15/22 11:23 03/15/22 11:23 03/15/22 11:23 03/15/22 11:23 Physical exam: General: Well-developed, well-nourished HEENT: Normocephalic, sclerae nonicteric Abdomen: Nontender, nondistended Extremities: No edema Neuro: Alert and oriented Results - Labs Abnormal Lab Results - Last 24 Hours (Table) 03/15/22 Range/Units 11:18 POC Glucose (mg/dL) 118 H (75-99) mg/dL Assessment and Plan (1) GERD (gastroesophageal reflux disease) Narrative/Plan: Will proceed with upper endoscopy Current Visit: Yes Status: Acute Code(s): K21.9 - GASTRO-ESOPHAGEAL REFLUX DISEASE WITHOUT ESOPHAGITIS SNOMED Code(s): 761756768
--- NOTE | 2022-03-15 12:44 | P.PCN ---
Date of Procedure: 03/15/22 Procedure(s) Performed: Preoperative Dx: GERD, presurgical Postoperative Dx: Gastritis, gastric polyps Procedure: EGD with Bx Anesthesia: Sedation Endoscopist: Dr. Franco Specimens: Antrum, gastric polyp Endoscopic Procedure: The patient was on the endoscopy table in the left decubitus position. The Olympus gastroscope was inserted into the oropharynx and passed under direct visualization to the region of the third portion of the duodenum. From that point the scope was slowly withdrawn inspecting all surfaces carefully. There were no neoplastic inflammatory or polypoid lesions throughout the duodenum. The pylorus was widely patent. The stomach was carefully inspected. There was mild gastritis present. A biopsy of the antrum took place to rule out H. pylori. The patient had a few small polyps in the stomach one of which was removed. Retroflexion revealed a normal hiatus. The esophagus was then carefully examined. There were no neoplastic inflammatory or polypoid lesions throughout the visualized esophagus. The patient was then taken to the recovery room in stable condition per anesthesia guidelines. Recommendations: Await biopsy results. Continue bariatric workup
[2022-03-15 12:48] VITALS: RESP 16
[2022-03-15 13:00] VITALS: BP 138/78; PULSE 92
== END 2022-03-15 13:15 ==
LOC: ORWHC2ENDO 10:52
PROVIDERS: ATTEND Surgery
DX: K29.50 Unspecified chronic gastritis without bleeding (principal); K31.7 Polyp of stomach and duodenum; J45.909 Unspecified asthma, uncomplicated; R73.03 Prediabetes; I10 Essential (primary) hypertension; H40.9 Unspecified glaucoma; D35.2 Benign neoplasm of pituitary gland; Z90.2 Acquired absence of lung [part of]; Z98.891 History of uterine scar from previous surgery; Z98.890 Other specified postprocedural states; Z90.710 Acquired absence of both cervix and uterus; E66.01 Morbid (severe) obesity due to excess calories; Z68.43 Body mass index [BMI] 50.0-59.9, adult; Z98.51 Tubal ligation status; F41.9 Anxiety disorder, unspecified; F41.0 Panic disorder [episodic paroxysmal anxiety]; F60.3 Borderline personality disorder; Z82.49 Family history of ischemic heart disease and other diseases of the circulatory system; Z83.3 Family history of diabetes mellitus; Z83.49 Family history of other endocrine, nutritional and metabolic diseases; Z83.79 Family history of other diseases of the digestive system; Z79.84 Long term (current) use of oral hypoglycemic drugs; Z79.899 Other long term (current) drug therapy; Z88.0 Allergy status to penicillin; Z88.2 Allergy status to sulfonamides; Z88.8 Allergy status to other drugs, medicaments and biological substances
CPT/HCPCS: 88305; 43239; J2704; J2001

== ENCOUNTER → 2022-04-04 | Outpatient (CLI) | payer BC, OTHER ==
[2022-04-04 10:43] VITALS: BMI 55.4
== END | disposition home or self-care (01) ==
LOC: BARWHC3 08:34
PROVIDERS: ATTEND Surgery
DX: E66.01 Morbid (severe) obesity due to excess calories (principal); Z71.3 Dietary counseling and surveillance
CPT/HCPCS: 97804

== ENCOUNTER → 2022-04-12 | Outpatient (CLI) | payer BC, OTHER ==
[2022-04-12 15:01] VITALS: BP 149/84; PULSE 111; RESP 12; TEMP 98.6; BMI 54.8
--- NOTE | 2022-04-12 15:24 | P.BASOAP ---
Subjective Progress Note Date: 04/12/22 Principal diagnosis: Morbid obesity Patient returns for reevaluation after EGD performed on 6. Patient had gastritis and gastric polyps. Biopsies benign. Patient says she was diagnosed with type 2 diabetes since last seen. She believes she was cleared by cardiology when she saw them in early February. I am waiting on those records. No new changes to the previous history of physical. Objective - Vital Signs Vital signs: Vital Signs Temp 98.6 F 04/12/22 14:49 Pulse 111 H 04/12/22 14:49 Resp 12 04/12/22 14:49 BP 149/84 04/12/22 14:49 Pulse Ox FiO2 Intake & Output 04/11/22 04/12/22 04/12/22 18:59 06:59 18:59 Weight 149.459 kg - Exam Abdomen: Soft, nontender, nondistended Assessment/Plan (1) Morbid obesity with BMI of 50.0-59.9, adult Narrative/Plan: 36-year-old female with morbid obesity and associated comorbidities. I will review the recent cardiology records for clearance. Await primary care physician Antonio as well. We'll tentatively schedule for laparoscopic da Otoniel-assisted sleeve gastrectomy, possible open in the near future. The risks of bleeding, infection, stenosis, stricture, leak, abscess, fistula formation, peritonitis, poor weight loss, reflux, vomiting, conversion to an open procedure, aborting sleeve gastrectomy, NH, PE, DVT, and were discussed. The patient understands and wishes to proceed. Plan: Date: 04/12/22 Initial Weight: Initial BMI: Current Weight: 149.459 kg Current BMI: 54.8 Type of Surgery: Total Volume in Band: Previous Volume: Volume Removed: Volume Added: Band Size:
== END | disposition home or self-care (01) ==
LOC: BARWHC3 14:49
PROVIDERS: ATTEND Surgery
DX: E66.01 Morbid (severe) obesity due to excess calories (principal); Z68.43 Body mass index [BMI] 50.0-59.9, adult
CPT/HCPCS: 99211

== ENCOUNTER → 2022-07-05 | Outpatient (CLI) | payer BC, OTHER ==
[2022-07-05 14:34] LABS: African American GFR (CKD) 120.1 (60.0-200.0); Albumin 4.2 g/dL (3.8-4.9); Albumin/Globulin Ratio 1.66 (1.60-3.17); Anion Gap 11.1 mmol/L (10.00-18.00); BUN/Creat Ratio 11.32 Ratio (12.00-20.00); Blood Urea Nitrogen 8.5 mg/dL (9.0-27.0); Calcium 9.5 mg/dL (8.7-10.3); Carbon Dioxide 25.3 mmol/L (20.0-27.5); Globulin 2.5 g/dL (1.6-3.3); Non-African American GFR(CKD) 103.7 (60.0-200.0); Potassium 4.1 mmol/L (3.5-5.5); Total Bilirubin 0.3 mg/dL (0.30-1.20); Total Protein 6.8 g/dL (6.2-8.2)
[2022-07-05 14:36] LABS: Basophils # (A) 0.03 X 10*3/uL (0.00-0.10); Basophils % (A) 0.3 %; Eosinophils # (A) 0.17 X 10*3/uL (0.04-0.35); Eosinophils % (A) 1.6 %; HCT 40.6 % (37.2-46.3); HGB 13.3 g/dL (12.0-15.0); Immature Grans, Automated 0.8 %; Lymphocytes # (A) 3.21 X 10*3/uL (0.90-5.00); Lymphocytes % (A) 29.6 %; MCH 29.3 pg (27.0-32.0); MCHC 32.8 g/dL (32.0-37.0); MCV 89.4 fL (80.0-97.0); Mean Platelet Volume 9.7 fL (9.5-12.2); Monocytes # (A) 0.68 X 10*3/uL (0.20-1.00); Monocytes % (A) 6.3 %; NRBC Per 100 WBC 0 /100 WBCS (0.0-0.0); Neutrophils # (A) 6.68 X 10*3/uL (1.80-7.70); Neutrophils % (A) 61.4 %; Platelet Count 304 X 10*3/uL (140-440); RBC 4.54 X 10*6/uL (4.10-5.20); RDW 14.6 % (11.5-14.5); WBC 10.86 X 10*3/uL (4.50-10.00)
== END | disposition home or self-care (01) ==
LOC: LABPAT 07:45
PROVIDERS: ATTEND Surgery
DX: Z01.812 Encounter for preprocedural laboratory examination (principal)
CPT/HCPCS: 80053; 85025

== ENCOUNTER → 2022-08-02 | Outpatient (CLI) | payer BC, OTHER ==
[2022-08-02 13:13] VITALS: BP 145/89; PULSE 90; RESP 16; TEMP 99.1; BMI 51.9
--- NOTE | 2022-08-02 14:00 | P.BASOAP ---
Subjective Progress Note Date: 08/02/22 Principal diagnosis: Morbid obesity Patient returns after recent failed attempt at laparoscopic robotic-assisted sleeve gastrectomy. The patient was found to have significant hepatomegaly limiting the visualization of the proximal stomach. The case was aborted at that time. Since discharge the patient has maintained her weight at 312. The patient has been active. No issues with the incisions. No pain. Objective - Vital Signs Vital signs: Vital Signs Temp 99.1 F 08/02/22 13:09 Pulse 90 08/02/22 13:09 Resp 16 08/02/22 13:09 BP 145/89 08/02/22 13:09 Pulse Ox FiO2 Intake & Output 08/01/22 08/02/22 08/02/22 18:59 06:59 18:59 Weight 141.521 kg - Exam Abdomen: Soft, nontender, nondistended, incisions clean and dry Assessment/Plan (1) Morbid obesity with BMI of 50.0-59.9, adult Narrative/Plan: 37-year-old female with obesity and hepatomegaly. The patient's liver size prevented recent attempts at laparoscopic sleeve gastrectomy. Options reviewed. May resume normal activity. We'll refer to [facility] for their opinion on how best to manage this patient and this challenging scenario. Plan: Date: 08/02/22 Initial Weight: 141.521 kg Initial BMI: 51.9 Current Weight: 141.521 kg Current BMI: 51.9 Type of Surgery: Total Volume in Band: Previous Volume: Volume Removed: Volume Added: Band Size:
== END | disposition home or self-care (01) ==
LOC: BARWHC3 12:50
PROVIDERS: ATTEND Surgery
DX: E66.01 Morbid (severe) obesity due to excess calories (principal); Z68.43 Body mass index [BMI] 50.0-59.9, adult
CPT/HCPCS: 99211